=== PATIENT | male | born 1955 | race African-American/Black ===

== ENCOUNTER 2017-08-06 13:29 | Inpatient (IN) | payer SELFPAY ==
[2017-08-06 13:51] LABS: Absolute Lymphocytes (CBC) 0.8 K/uL (0.7-4.9); Absolute Neutrophil 2.6 K/uL (1.8-8.0); Basophils % 0.4 % (0-1.3); Eosinophils % 0.9 % (0-4.4); Hematocrit 43.2 % (39.6-49.0); Lymphocytes % 24.4 % (15.3-44.8); MCH 28.8 pg (27.0-35.0); MCV 88.1 fL (80-100); MPV 7.5 fL (7.6-11.3); Monocytes % 0.7 % (3.3-12.3); RBC Red Blood Cell Count 4.91 M/uL (4.33-5.43)
[2017-08-06 13:54] LABS: Protime INR 1.28
--- NOTE | 2017-08-06 14:03 | EKG ---
Test Date: 2017-08-06 Test Time: 13:30:44 Follow Up Manager: MEASUREMENT RESULTS: Intervals: Rate: 123 VT: 130 QRSD: 74 QT: 306 QTc: 438 Jayess: P: 84 VT: 130 QRS: 45 T: -55 INTERPRETIVE STATEMENTS: Sinus tachycardia Marked ST abnormality, possible inferior subendocardial injury Abnormal ECG Compared to ECG 05/29/2007 23:17:51 ST (T wave) deviation now present Sinus bradycardia no longer present T-wave abnormality no longer present Possible ischemia no longer present Electronically Signed On 08-06-17 14:03:00 CDT by Jose Avila
[2017-08-06 14:05] LABS: Albumin 3.6 g/dL (3.2-5.5); Bilirubin Direct 0.2 mg/dL (0-0.2); Bilirubin Total 0.8 mg/dL (0.3-1.2); Magnesium 1.7 mg/dL (1.8-2.5); Protein, Total 8.2 g/dL (6.0-8.3)
--- NOTE | 2017-08-06 14:24 | EDPHYS ---
Physician Documentation [facility] Name: Jorge Alfaro Age: 62 yrs Sex: Male : 1955 Arrival Date: 08/06/2017 Time: 13:31 Bed 2 Private MD: ED Physician Ramses Sellers HPI: 08/06 14:20 This 62 yrs old Black Male presents to ER via EMS with complaints of Chest Pain > 30 jr8 y/o. 14:20 The patient or guardian reports chest pain that is located primarily in the substernal jr8 area. Onset: acutely, today. The pain does not radiate. Associated signs and symptoms: The patient has no apparent associated signs or symptoms. The chest pain is described as a heaviness. Duration: The patient or guardian reports a single episode. Modifying factors: The symptoms are alleviated by remaining still, rest, the symptoms are aggravated by exertion. Severity of pain: At its worst the pain was moderate in the emergency department the pain is unchanged. The patient has experienced similar episodes in the past, a few times. The patient has not recently seen a physician. history of chest pain that comes and goes with exertion. Worse today with tremor. Historical: - Allergies: 13:37 No Known Allergies; tw2 - Home Meds: 13:37 None [Active]; tw2 - PMHx: 13:37 Hypertension; "clogged artery unknown"; tw2 - Immunization history:: Adult Immunizations up to date. - Social history:: Smoking status: Patient uses tobacco products, smokes one pack cigarettes per day. ROS: 14:20 Eyes: Negative for injury, pain, redness, and discharge, ENT: Negative for injury, jr8 pain, and discharge, Neck: Negative for injury, pain, and swelling, Respiratory: Negative for shortness of breath, cough, wheezing, and pleuritic chest pain, Abdomen/GI: Negative for abdominal pain, nausea, vomiting, diarrhea, and constipation, Back: Negative for injury and pain, MS/Extremity: Negative for injury and deformity, Skin: Negative for injury, rash, and discoloration, Neuro: Negative for headache, weakness, numbness, tingling, and seizure. 14:20 Cardiovascular: Positive for chest pain, Negative for edema, orthopnea, palpitations, paroxysmal nocturnal dyspnea. Exam: 14:20 Eyes: Pupils equal round and reactive to light, extra-ocular motions intact. Lids and jr8 lashes normal. Conjunctiva and sclera are non-icteric and not injected. Cornea within normal limits. Periorbital areas with no swelling, redness, or edema. ENT: Nares patent. No nasal discharge, no septal abnormalities noted. Tympanic membranes are normal and external auditory canals are clear. Oropharynx with no redness, swelling, or masses, exudates, or evidence of obstruction, uvula midline. Mucous membranes moist. Neck: Trachea midline, no thyromegaly or masses palpated, and no cervical lymphadenopathy. Supple, full range of motion without nuchal rigidity, or vertebral point tenderness. No Meningismus. Cardiovascular: Regular rate and rhythm with a normal S1 and S2. No gallops, murmurs, or rubs. Normal PMI, no JVD. No pulse deficits. Respiratory: Lungs have equal breath sounds bilaterally, clear to auscultation and percussion. No rales, rhonchi or wheezes noted. No increased work of breathing, no retractions or nasal flaring. Abdomen/GI: Soft, non-tender, with normal bowel sounds. No distension or tympany. No guarding or rebound. No evidence of tenderness throughout. Back: No spinal tenderness. No costovertebral tenderness. Full range of motion. Skin: Warm, dry with normal turgor. Normal color with no rashes, no lesions, and no evidence of cellulitis. MS/ Extremity: Pulses equal, no cyanosis. Neurovascular intact. Full, normal range of motion. Neuro: Awake and alert, GCS 15, oriented to person, place, time, and situation. Cranial nerves II-XII grossly intact. Motor strength 5/5 in all extremities. Sensory grossly intact. Cerebellar exam normal. Normal gait. Vital Signs: 13:31 BP 139 / 84; Pulse 127; Resp 17; Pulse Ox 100% on R/A; tw2 13:32 Temp 99.1(O); aa5 14:17 BP 106 / 63; Pulse 94; Resp 17; Pulse Ox 100% on R/A; hb 14:37 Weight 86.18 kg (R); tw2 15:15 BP 96 / 76; Pulse 114; Resp 16; Pulse Ox 97% on NC; tw2 16:00 Temp 100.3; ms 16:15 BP 118 / 73; Pulse 116; Resp 16; Pulse Ox 100% on 2 lpm NC; tw2 MDM: 13:35 Patient medically screened. 14:20 HEART Score: History: Moderately Suspicious (1), ECG: Non specific repolarization jr disturbance / LBTB / PM (1), Age: > 45 and < 65 years (1), Risk Factors: 1 or 2 risk factors (1), [Hypercholesterolemia] [Active Smoker] Troponin: > 1 and < 3 x normal limit (1). The patient was not given aspirin in the Emergency Department. Administered by EMS. Data reviewed: vital signs, nurses notes, lab test result(s), EKG, radiologic studies, plain films, and as a result, I will admit patient. Data interpreted: Pulse oximetry: on room air is 100 %. Interpretation: normal. Counseling: I had a detailed discussion with the patient and/or guardian regarding: the historical points, exam findings, and any diagnostic results supporting the discharge/admit diagnosis, lab results, radiology results, the need for further work-up and treatment in the hospital. 08/06 13:36 Order name: Basic Metabolic Panel; Complete Time: 14:08/06 13:36 Order name: BNP; Complete Time: 14:08/06 13:36 Order name: CBC with Diff; Complete Time: 13:08/06 13:36 Order name: CPK; Complete Time: 14:08/06 13:36 Order name: LFT's; Complete Time: 14:08/06 13:36 Order name: Magnesium; Complete Time: 14:08/06 13:36 Order name: PT-INR; Complete Time: 13:56 08/06 13:36 Order name: Ptt, Activated; Complete Time: 13:56 08/06 13:36 Order name: Troponin (emerg Dept Use Only); Complete Time: 14:19 08/06 13:36 Order name: XRAY Chest (1 view) 08/06 13:36 Order name: UDS; Complete Time: 15:03 08/06 14:24 Order name: Urine Dipstick--Ancillary (enter results) 08/06 14:29 Order name: Urine Microscopic Only; Complete Time: 15:08/06 16:22 Order name: RAD; Complete Time: 16:24 EDMS 08/06 13:36 Order name: EKG; Complete Time: 13:37 08/06 13:36 Order name: Cardiac monitoring; Complete Time: 13:44 [email or web address] 08/06 13:36 Order name: EKG - Nurse/Tech; Complete Time: 13:44 08/06 13:36 Order name: IV Saline Lock; Complete Time: 13:44 08/06 13:36 Order name: Labs collected and sent; Complete Time: 13:44 08/06 13:36 Order name: O2 Per Protocol; Complete Time: 13:44 08/06 13:36 Order name: O2 Sat Monitoring; Complete Time: 13:44 [email or web address] 08/06 13:36 Order name: Urine Dipstick-Ancillary (obtain specimen); Complete Time: 14:52 [facility] [[email or web address] 08/06 14:36 Order name: CONS Physician Consult EDMS Administered Medications: 14:40 Drug: Rocephin - (cefTRIAXone) 1 grams {Note: IVP available only from pharmacy.} Route: tw2 IVPB; Infused Over: 5 mins; Site: right antecubital; 14:45 Follow up: IV Status: Completed infusion tw2 14:46 Drug: Lovenox 1 mg/kg Route: Sub-Q; Site: right lower abdomen; tw2 15:09 Follow up: Response: No adverse reaction tw2 15:05 Drug: Magnesium Sulfate 1 grams Route: IVPB; Infused Over: 1 hrs; Site: right tw2 antecubital; 16:05 Follow up: Response: No adverse reaction; IV Status: Completed infusion tw2 15:07 CANCELLED (Physician Discretion): NS 0.9% 1000 ml IV at 1000 ml once jr8 15:07 CANCELLED (Duplicate Order): NS 0.9% 1000 ml IV at 1 bolus Per protocol; 1000 mL bolus tw2 15:08 Drug: Effient 60 mg Route: PO; tw2 16:12 Follow up: Response: No adverse reaction tw2 15:14 Drug: NS 0.9% 1000 ml Route: IV; Rate: 1 bolus; Site: right antecubital; tw2 16:12 Follow up: Response: No adverse reaction; IV Status: Completed infusion; IV Intake: tw2 1000ml Disposition: 08/07 09:20 Co-signature as Attending Physician, Ramses Marlo MD I agree with the assessment and geovany plan of care. Disposition: 08/06/17 14:23 Hospitalization ordered by Grover Randhawa for Inpatient Admission. Preliminary diagnosis are Non-ST elevation (NSTEMI) myocardial infarction, Urinary tract infection, site not specified. - Bed requested for Intensive Care Unit. - Status is Inpatient Admission. tw2 - Condition is Stable. - Problem is new. - Symptoms have improved. UTI on Admission? Yes Signatures: Dispatcher [employer] EDND Ramses Sellers MD MD cha Roszak, Josh, PA PA jr8 Myriam Chambers Tara, RN RN tw2 Corrections: (The following items were deleted from the chart) 08/06 14:29 14:23 Hospitalization Ordered by Grover Randhawa MD for Inpatient Admission. jr8 Preliminary diagnosis is Non-ST elevation (NSTEMI) myocardial infarction. Bed requested for Intensive Care Unit. Status is Inpatient Admission. Condition is Stable. Problem is new. Symptoms have improved. UTI on Admission? No. jr8 15:07 15:06 NS 0.9% 1000 ml IV at 1000 ml once ordered. jr8 jr8 15:07 15:06 NS 0.9% 1000 ml IV at 1 bolus Per protocol; 1000 mL bolus ordered. tw2 tw2 16:11 14:29 08/06/2017 14:23 Hospitalization Ordered by Grover Randhawa MD for Inpatient ag Admission. Preliminary diagnosis is Non-ST elevation (NSTEMI) myocardial infarction; Urinary tract infection, site not specified. Bed requested for Intensive Care Unit. Status is Inpatient Admission. Condition is Stable. Problem is new. Symptoms have improved. UTI on Admission? Yes. jr8 16:51 16:11 08/06/2017 14:23 Hospitalization Ordered by Grover Randhawa MD for Inpatient tw2 Admission. Preliminary diagnosis is Non-ST elevation (NSTEMI) myocardial infarction; Urinary tract infection, site not specified. Bed requested for Intensive Care Unit. Status is Inpatient Admission. Condition is Stable. Problem is new. Symptoms have improved. UTI on Admission? Yes. ag
--- NOTE | 2017-08-06 14:24 | ER ---
Nurse's Notes [facility] Name: Joreg Alfaro Age: 62 yrs Sex: Male : 1955 Arrival Date: 08/06/2017 Time: 13:31 Bed 2 Private MD: Diagnosis: Non-ST elevation (NSTEMI) myocardial infarction;Urinary tract infection, site not specified Presentation: 08/06 13:33 Presenting complaint: EMS states: c/o chest pain and tremors, intermittent for several tw2 months, associated severe tremors, when tremors subside chest pain/pressure decreases, family member called was worried because of given meds from [facility] of penicillin and tramadol, vs stable, groin pain x1 week, to see dr. gregg tomorrow, hx: htn, "clogged artery unknown". Transition of care: patient was not received from another setting of care. Onset of symptoms was August 06, 2017. Initial Sepsis Screen: Does the patient meet any 2 criteria? No. Patient's initial sepsis screen is negative. Does the patient have a suspected source of infection? No. Patient's initial sepsis screen is negative. Care prior to arrival: Medication(s) given: ASA, 325 mg, x 1, IV initiated. 20 GA, in the right antecubital area. 13:33 Method Of Arrival: EMS: [facility] tw2 13:33 Acuity: EARNESTINE 3 tw2 Historical: - Allergies: 13:37 No Known Allergies; tw2 - Home Meds: 13:37 None [Active]; tw2 - PMHx: 13:37 Hypertension; "clogged artery unknown"; tw2 - Immunization history:: Adult Immunizations up to date. - Social history:: Smoking status: Patient uses tobacco products, smokes one pack cigarettes per day. Screenin:36 Abuse screen: Denies threats or abuse. Nutritional screening: No deficits noted. tw2 Tuberculosis screening: No symptoms or risk factors identified. Fall Risk None identified. Assessment: 13:37 General: Appears in no apparent distress. unkempt, Behavior is calm, cooperative, tw2 appropriate for age. Pain: Complains of pain in chest Pain does not radiate. Pain began suddenly, Aggravated by "tremors". Neuro: Level of Consciousness is awake, alert, obeys commands, Oriented to person, place, time, situation. Cardiovascular: Heart tones S1 S2 Capillary refill < 3 seconds Patient's skin is warm and dry. Respiratory: Airway is patent Respiratory effort is even, unlabored, Respiratory pattern is regular, symmetrical, Breath sounds are clear. GI: Abdomen is flat, Bowel sounds present X 4 quads. : No signs and/or symptoms were reported regarding the genitourinary system. EENT: No signs and/or symptoms were reported regarding the EENT system. Derm: No signs and/or symptoms reported regarding the dermatologic system. Musculoskeletal: Range of motion: intact in all extremities. 13:40 Cardiovascular: Rhythm is sinus tachycardia. tw2 14:17 Reassessment: Patient appears in no apparent distress at this time. No changes from hb previously documented assessment. Patient and/or family updated on plan of care and expected duration. Pain level reassessed. Patient is alert, oriented x 3, equal unlabored respirations, skin warm/dry/pink. 15:15 Reassessment: Patient appears in no apparent distress at this time. No changes from tw2 previously documented assessment. Patient and/or family updated on plan of care and expected duration. Pain level reassessed. Patient is alert, oriented x 3, equal unlabored respirations, skin warm/dry/pink. 16:14 Reassessment: Patient appears in no apparent distress at this time. No changes from tw2 previously documented assessment. Patient and/or family updated on plan of care and expected duration. Pain level reassessed. Patient is alert, oriented x 3, equal unlabored respirations, skin warm/dry/pink. Vital Signs: 13:31 BP 139 / 84; Pulse 127; Resp 17; Pulse Ox 100% on R/A; tw2 13:32 Temp 99.1(O); aa5 14:17 BP 106 / 63; Pulse 94; Resp 17; Pulse Ox 100% on R/A; hb 14:37 Weight 86.18 kg (R); tw2 15:15 BP 96 / 76; Pulse 114; Resp 16; Pulse Ox 97% on NC; tw2 16:00 Temp 100.3; ms 16:15 BP 118 / 73; Pulse 116; Resp 16; Pulse Ox 100% on 2 lpm NC; tw2 ED Course: 13:31 Patient arrived in ED. tw2 13:35 Triage completed. tw2 13:35 Buster Son PA is PHCP. jr8 13:35 Ramses Sellers MD is Attending Physician. jr8 13:35 Arm band placed on. tw2 13:35 Placed in gown. Bed in low position. telemetry monitor on. Pulse ox on. NIBP on. tw2 13:39 Maintain EMS IV. Dressing intact. Good blood return noted. Site clean \\T\\ dry. Gauge \\T\\ tw 2 site: 20 g right. Patient maintains SpO2 saturation greater than 95% on room air. 13:39 Initial lab(s) drawn, by me, sent to lab. aa5 14:17 Renata Richard, GUY is Primary Nurse. hb 14:23 Grover Randhawa MD is Hospitalizing Provider. jr8 16:13 No provider procedures requiring assistance completed. Patient admitted, IV remains in tw2 place. Administered Medications: 14:40 Drug: Rocephin - (cefTRIAXone) 1 grams {Note: IVP available only from pharmacy.} Route: tw2 IVPB; Infused Over: 5 mins; Site: right antecubital; 14:45 Follow up: IV Status: Completed infusion tw2 14:46 Drug: Lovenox 1 mg/kg Route: Sub-Q; Site: right lower abdomen; tw2 15:09 Follow up: Response: No adverse reaction tw2 15:05 Drug: Magnesium Sulfate 1 grams Route: IVPB; Infused Over: 1 hrs; Site: right tw2 antecubital; 16:05 Follow up: Response: No adverse reaction; IV Status: Completed infusion tw2 15:07 CANCELLED (Physician Discretion): NS 0.9% 1000 ml IV at 1000 ml once jr8 15:07 CANCELLED (Duplicate Order): NS 0.9% 1000 ml IV at 1 bolus Per protocol; 1000 mL bolus tw2 15:08 Drug: Effient 60 mg Route: PO; tw2 16:12 Follow up: Response: No adverse reaction tw2 15:14 Drug: NS 0.9% 1000 ml Route: IV; Rate: 1 bolus; Site: right antecubital; tw2 16:12 Follow up: Response: No adverse reaction; IV Status: Completed infusion; IV Intake: tw2 1000ml Intake: 16:12 IV: 1000ml; Total: 1000ml. tw2 Output: 16:20 Urine: 250ml (Voided); Total: 250ml. tw2 Outcome: 14:23 Decision to Hospitalize by Provider. jr8 16:51 Patient left the ED. tw2 Signatures: Gloria Triana ms, Audri, RN RN aa5 Buster Son PA PA jr8 Renata Richard, RN RN Karina Rivero RN RN tw2
[2017-08-06] MEDS ORDERED: MAGNESIUM SULFATE 1 gm IVPB 1 GM/100 ML BAG IV ONE (14:43)
[2017-08-06] MEDS ORDERED: ENOXAPARIN 100 MG/ML SYR SQ ONE (14:43)
[2017-08-06] MEDS ORDERED: CEFTRIAXONE/SWI 1gm 1 GM/10 ML SYR ONE (14:44)
[2017-08-06 14:47] LABS: Urine Bacteria >50 /HPF (NONE SEEN); Urine RBC <5 /HPF (NONE SEEN)
[2017-08-06 14:49] LABS: Urine Culture Reflex Order REFLEXED
[2017-08-06 14:50] LABS: Urine Amorphous Sediment 1+ /HPF (NONE SEEN); Urine Mucus 2+ /HPF (NONE SEEN); Urine Triple Phosphate Crystal MANY (NONE SEEN)
[2017-08-06 14:53] LABS: Barbiturates NEGATIVE; Benzodiazepines NEGATIVE; Cocaine NEGATIVE; METHAMPHETAM NEGATIVE; Opiates POSITIVE; Phencyclidine NEGATIVE; THC Cannibis NEGATIVE
[2017-08-06] MEDS ORDERED: PRASUGREL (EFFIENT) 10 MG TAB PO ONE (15:00)
[2017-08-06] MEDS ORDERED: NA CHLORIDE 0.9% 1,000 ML ONE (15:11)
[2017-08-06] MEDS ORDERED: NITROGLYCERIN 0.4 MG/TAB SL PRN (15:36)
--- NOTE | 2017-08-06 15:42 | P.HP ---
Certification for Inpatient With expected LOS: >2 Midnights Practitioner: I am a practitioner with admitting privileges, knowledge of patient current condition, hospital course, and medical plan of care. Services: Services provided to patient in accordance with Admission requirements found in Title 42 Section 412.3 of the Code of Federal Regulations Patient History Date of Service: 08/06/17 Reason for admission: Chest pain dysuria History of Present Illness: Patient is 62 years of age a poor historian history obtained from family members he has been having chest pain on an off for quite some time became progressively worse eyes having before to for to fight times a day he admission percent and a shaking spell his chest pain is retrosternal patient does smoke a PE he was scheduled to see a primary care physician In addition he complains of dysuria pain in the right growing urinary hesitancy and poor stream digestive of for prostatic hypertrophy Allergies No Known Allergies Allergy (Unverified 08/06/17 15:33) - Past Medical/Surgical History -: Hypertension Review of Systems General: Weakness Respiratory: Shortness of Breath Cardiovascular: Chest Pain Genitourinary: Dysuria, Frequency, Unremarkable Physical Examination - Vital Signs Temperature: 99 F Blood Pressure: 139/84 Pulse: 127 Respirations: 18 Pulse Ox (%): 100 (RA) - Physical Exam General: Alert, Oriented x3, Moderate distress HEENT: Atraumatic Neck: Supple Respiratory: Expiratory wheezes Cardiovascular: No edema, Normal pulses Gastrointestinal: Normal bowel sounds, Soft and benign Musculoskeletal: No clubbing, No contractures Integumentary: No rashes, No breakdown Neurological: Normal gait, Normal speech External genitalia: No edema, No lesions, No masses, Non-tender - Studies Laboratory Data (last 24 hrs) 08/06/17 13:35: PT 15.2 H, INR 1.28, APTT 26.4 08/06/17 13:35: WBC 3.5 L, Hgb 14.1, Hct 43.2, Plt Count 211 08/06/17 13:35: B-Natriuretic Peptide 220 H 08/06/17 13:35: Sodium 137, Potassium 4.0, BUN 16, Creatinine 1.25 H, Glucose 86 , Magnesium 1.7 L, Total Bilirubin 0.8, AST 29, ALT 20, Alkaline Phosphatase 105 Assessment and Plan - Problems (Diagnosis) (1) Non-ST elevation [place] (NSTEMI) Current Visit: Yes Status: Acute Plan: Patient is 62 years of age admitted with increasing frequency of chest pain suggestive of unstable angina the kg is very abnormal EKG shows possible subendocardial injury patient is an active smoker history of hypertension noncompliant with his medication chest x-ray clear mild renal insufficiency cardiology has been consulted start on anticoagulation beta-blockers still having some chest pain I have added nitrates nitroglycerin he was given 1 dose of Effient - Advance Directives Does patient have a Living Will: No Does patient have a Durable POA for Healthcare: No
[2017-08-06] MEDS: CARVEDILOL 12.5 MG TAB PO SCH (16:00)
[2017-08-06] MEDS: ISOSORBIDE MONO SR 30 MG TAB PO SCH (16:00)
[2017-08-06] MEDS: ENOXAPARIN 80 MG/0.8 ML SQ SCH (16:00)
--- NOTE | 2017-08-06 16:22 | RAD REPORT ---
EXAM DESCRIPTION: Damon Single View08/06/2017 3:14 pm CLINICAL HISTORY: Chest pain COMPARISON: none FINDINGS: The lungs appear clear of acute infiltrate. The heart is normal size IMPRESSION: No acute abnormalities displayed
[2017-08-06 17:09] LABS: Urine Blood TRACE (NEG); Urine Glucose NEGATIVE (NEG); Urine Protein 2+ (NEG); Urine Specific Gravity 1.015 (1.005-1.030); Urine pH >8.5 (5.0-7.0)
[2017-08-06] MEDS: predniSONE 20 MG TAB PO SCH ×2 (17:28→20:23)
[2017-08-06] MEDS: NACHLORIDE 0.45% 1,000 ML IV SCH (17:29)
--- NOTE | 2017-08-06 19:53 | RAD REPORT ---
EXAM DESCRIPTION: US - Renal Ultrasound-Complete - 08/06/2017 7:24 pm CLINICAL HISTORY: . Dysuria/urinary hesitancy COMPARISON: None. FINDINGS: The right kidney measures 13 centimeters with a mildly increased echotexture. Several cyst s are present largest measuring 6 centimeter The left kidney measures 12 cm with a normal echotexture. Hydronephrosis is not seen. IMPRESSION: 6 centimeter right renal cyst Mildly increased renal echotexture consistent with parenchymal disease
[2017-08-06] MEDS: IPRATROPIUM BROM 0.5MG/2.5ML NEB SCH (20:00)
[2017-08-06] MEDS ORDERED: PNEUMOCOCCAL VACCINE 0.5 ML IMVAC ONE (20:00)
[2017-08-06] MEDS ORDERED: ATORVASTATIN 40 MG TAB PO SCH (21:00)
--- NOTE | 2017-08-06 22:26 | P.PN ---
Subjective Date of Service: 08/06/17 Chief Complaint: Chest pain dysuria Physical Examination - Vital Signs Temperature: 99.7 F Blood Pressure: 115/69 Pulse: 119 Respirations: 21 Pulse Ox (%): 100 - Studies Laboratory Data (last 24 hrs) 08/06/17 13:35: PT 15.2 H, INR 1.28, APTT 26.4 08/06/17 13:35: WBC 3.5 L, Hgb 14.1, Hct 43.2, Plt Count 211 08/06/17 13:35: B-Natriuretic Peptide 220 H 08/06/17 13:35: Sodium 137, Potassium 4.0, BUN 16, Creatinine 1.25 H, Glucose 86 , Magnesium 1.7 L, Total Bilirubin 0.8, AST 29, ALT 20, Alkaline Phosphatase 105 Assessment & Plan - Problems (Diagnosis) (1) Chest pain Current Visit: Yes Status: Acute (2) HTN (hypertension) Current Visit: Yes Status: Chronic Qualifiers: Hypertension type: essential hypertension Qualified Code(s): I10 - Essential (primary) hypertension (3) Renal insufficiency Current Visit: Yes Status: Acute (4) Non-ST elevation PR (NSTEMI) Current Visit: Yes Status: Acute
[2017-08-07] MEDS: IPRATROPIUM BROM 0.5MG/2.5ML NEB SCH ×4 (01:55→19:39)
[2017-08-07] MEDS: NACHLORIDE 0.45% 1,000 ML IV SCH (04:17)
[2017-08-07] MEDS: CARVEDILOL 12.5 MG TAB PO SCH (05:50)
[2017-08-07 06:43] LABS: Potassium 4.7 mEq/L (3.6-5.0)
[2017-08-07] MEDS: ENOXAPARIN 80 MG/0.8 ML SQ SCH (09:00)
[2017-08-07] MEDS: predniSONE 20 MG TAB PO SCH ×2 (09:00→20:25)
[2017-08-07] MEDS: ISOSORBIDE MONO SR 30 MG TAB PO SCH (09:00)
[2017-08-07] MEDS: ACETYLCYST 20% 800 MG/4 ML VIAL PO SCH ×2 (10:00→20:26)
[2017-08-07] MEDS ORDERED: LIDOCAINE 1% 20 ML MDV ONE ×2 (10:08→10:24)
[2017-08-07] MEDS ORDERED: HEPA 1000U/500MLS 2,000 UNIT/1,000 ML BAG IV ONE (10:08)
[2017-08-07] MEDS ORDERED: NA CHLORIDE 0.9% 50 ML ONE (10:25)
[2017-08-07] MEDS ORDERED: NICARDIPINE HCL 25 MG/10 ML IV ONE (10:25)
[2017-08-07] MEDS ORDERED: ATROPINE SULF 1 MG/10 ML SYR IV ONE (10:25)
[2017-08-07] MEDS ORDERED: HEPARIN 5000 UNIT/ML 1 ML VIAL ONE (10:25)
[2017-08-07] MEDS ORDERED: FENTANYL CITR 100 MCG/2 ML ONE (10:26)
[2017-08-07] MEDS ORDERED: MIDAZOLAM HCL 2 MG/2 ML INJ ONE ×2 (10:26→11:02)
[2017-08-07] MEDS ORDERED: NA CHLORIDE 0.9% 500 ML ONE ×2 (10:41→11:30)
[2017-08-07] MEDS ORDERED: PRASUGREL (EFFIENT) 10 MG TAB ONE ×2 (11:36→11:39)
[2017-08-07] MEDS ORDERED: ASPIRIN 81 MG CHEWABLE TABLET ONE ×2 (11:36→11:39)
--- NOTE | 2017-08-07 12:37 | CON ---
Chief Complaint: Chest pain. History Of Present Illness: Mr. Alfaro has been having intermittent chest pains for a few years, but over the last few days, it got much worse. His daughter insisted, he come to the ER. Since he has been here, he had an EKG that showed diffuse ST depression. Later, an EKG showed much improvement in that and he has had abnormal cardiac enzymes. Mr. Alfaro is a patient, who does not take any medica tions at home, but he does have hypertension, was prescribed blood pressure medicines, never took it. He also is a heavy tobacco user. Denies any history of diabetes. Allergies: DENIES ANY DRUG ALLERGIES. Social History: Alcohol use is modest, not high. Denies illegal drug use. Physical Examination: Vital Signs: 5 Feet 10 inches, 172 pounds. HEENT: Normal. Lungs: Clear. Heart: S4 gallop otherwise normal. Abdomen: Soft. Extremities: Normal distal pulses. His electrocardiogram showed marked ST abnormality. Impression: Mr. Alfaro has a non-ST elevation myocardial infarction. I have recommended we do a car diac cath and possible stent. He seems to understand the procedure, potential benefits, indications, risks, and agrees to proceed. RENE/FERN Voice ID: [id number] Report ID: [id number]
[2017-08-07] MEDS ORDERED: ACETAMINOPHEN 325 MG TABLET PO PRN (12:42)
--- NOTE | 2017-08-07 16:01 | P.PN ---
Subjective Date of Service: 08/07/17 Primary Care Provider: none Chief Complaint: Chest pain dysuria Subjective: Improving Physical Examination - Vital Signs Temperature: 97.8 F Blood Pressure: 129/79 Pulse: 84 Respirations: 20 Pulse Ox (%): 99 - Physical Exam General: Alert, In no apparent distress, Oriented x3, Cooperative HEENT: Atraumatic Neck: Supple Respiratory: Clear to auscultation bilaterally, Normal air movement Cardiovascular: Normal pulses, Regular rate/rhythm Gastrointestinal: Normal bowel sounds, Soft and benign, Non-distended, No masses , No rebound, No guarding Musculoskeletal: No erythema, No tenderness, No warmth Integumentary: No tenderness/swelling, No erythema, No warmth, No cyanosis Neurological: Normal speech, Normal strength at 5/5 x4 extr, Normal tone, Normal affect - Studies Medications List Reviewed: Yes Assessment & Plan - Problems (Diagnosis) (1) Chest pain Current Visit: Yes Status: Acute Plan: Patient have heart catheterization today. Await final evaluation by Cardiology. (2) HTN (hypertension) Current Visit: Yes Status: Chronic Plan: Will continue with blood pressure medication. Patient has not been compliant in the past. Qualifiers: Hypertension type: essential hypertension Qualified Code(s): I10 - Essential (primary) hypertension (3) Renal insufficiency Current Visit: Yes Status: Acute Plan: Mild renal insufficiency noted. Will monitor closely. (4) Non-ST elevation [place] (NSTEMI) Current Visit: Yes Status: Acute Plan: Heart catheterization pending. (5) Hyperlipidemia Current Visit: Yes Status: Chronic Plan: Will continue with medication. Will check fasting lipid panel. (6) Hypomagnesemia Current Visit: Yes Status: Acute Plan: Will monitor and replace appropriately. Replacement protocol in place. Discharge Plan: Home Plan to discharge in: 24 Hours Time Spent Managing Pts Care (In Minutes): 55
[2017-08-07] MEDS: CLOPIDOGREL 75 MG TABLET PO SCH (16:58)
[2017-08-07] MEDS: METOPROLOL TAR 25 MG TAB PO SCH (18:01)
[2017-08-07] MEDS: ATORVASTATIN 80 MG TAB PO SCH (20:25)
--- NOTE | 2017-08-07 22:22 | OP ---
Surgeon: Jsoe Avila MD Procedures: Left heart catheterization, coronary left ventricular angiography, and percutaneous coronary stent pr oximal circumflex stenosis. Procedure Findings: The patient has a totally occluded right coronary that seems to be of long durat ion. There is akinesis of the inferior wall. The left main is free of any significant stenosis. LA D is free of any significant stenosis more than 50%. It is diffusely diseased very distally and has some 70% to 80% stenosis where it is a 1 mm vessel, very close to the apex. The circumflex is diffus adonay diseased, but proximal within 1 cm of the origin, it had an 80% to 90% stenosis. We believe this to be the culprit lesion with his non-ST elevation RI. We stented it with a 3.0 x 12 Synergy stent, inflated to 10 atmospheres. Excellent angiographic result. Procedure In Detail: The patient had evidence of a non-ST elevation RI. He was brought to the [facility] process laboratory specialist in a fasting state, sedated with Versed and fentanyl. Prepared and draped in the usual s terile fashion. Right radial approach was used. We anesthetized the skin over the right radial ellyn ry with lidocaine, entered the artery using a 21-gauge needle. We used a 0.021-inch diameter wire to cannulate the artery. We then used modified Seldinger technique to place a 6-Bruneian radial sheath i n place. We then angiogramed left ventricle, right and left coronaries using a TIG catheter placed i nto the ascending aorta using fluoroscopy and a Terumo Glidewire with a short radius J-tip. After we determined that we should do a stent, the TIG catheter was removed over an exchange length J-wire an d Ikari 4.0 left with side holes was used. We were able to cannulate the left main ostium. We were able to pass a [place] wire across the lesion. It did not require predilation and it was stented with a 3-0 x 12 synergy, 10 atmospheres, excellent angiographic result. The stent catheter and the wires were removed. Final angiograms were obtained. The guiding catheter was removed over a J-wire. A T R band was flushed and removed. The sheath was flushed and removed and the arteriotomy was closed wi th a TR band. As soon as we determined the need for a stent, he was on Angiomax. Activated clotting time was demonstrated to be more than 300 seconds. As soon as the sheath was in place, we gave the radial cocktail containing nicardipine, heparin, and nitroglycerin. Estimated Blood Loss: 10 cc. Business Services Tech: Karissa Adams. RENE/FERN Voice ID: [id number] Report ID: [id number]
[2017-08-08] MEDS: IPRATROPIUM BROM 0.5MG/2.5ML NEB SCH ×4 (01:15→21:11)
[2017-08-08 05:10] LABS: Absolute Lymphocytes (CBC) 0.8 K/uL (0.7-4.9); Absolute Monocytes 0.9 K/uL (0.1-1.3); Basophils % 0.1 % (0-1.3); Hematocrit 35.1 % (39.6-49.0); Lymphocytes % 2.6 % (15.3-44.8); MCH 28.2 pg (27.0-35.0); MCV 85.9 fL (80-100); MPV 8.7 fL (7.6-11.3); Monocytes % 2.8 % (3.3-12.3); RBC Red Blood Cell Count 4.09 M/uL (4.33-5.43)
[2017-08-08] MEDS: METOPROLOL TAR 25 MG TAB PO SCH ×2 (05:26→17:15)
[2017-08-08 05:51] LABS: BUN Blood Urea Nitrogen 23 mg/dL (6-20); Bicarbonate 22 mEq/L (21-31); Glucose Level 124 mg/dL (65-120); HDL Cholesterol 8 mg/dL (27-67); LDL Cholesterol, Calculated 58 (<130); Magnesium 2.1 mg/dL (1.8-2.5); Potassium 4.6 mEq/L (3.6-5.0); Sodium Level 135 mEq/L (135-145)
[2017-08-08 06:13] LABS: Blood Morphology Comment NOT SEEN (NOT SEEN); Platelet Estimate ADEQ
[2017-08-08] MEDS ORDERED: NA CHLORIDE 0.9% 1,000 ML IV SCH (06:19)
[2017-08-08] MEDS ORDERED: CEFTRIAXONE 1 GM/NS 50 ML 1 GM/50 ML BAG IV SCH (06:19)
--- NOTE | 2017-08-08 06:23 | P.PN ---
Date of Service: 08/08/17 Called re: significantly elevated WBC ct and bands. Ua with micro showed slightly elevated WBC ct, with bacteria positive, and urine culture and sensitivity showed >100,000 CFU of gram negative rods. Will start IV antibiotics. Will give additional fluids
[2017-08-08 07:33] LABS: Absolute Lymphocytes (CBC) 0.8 K/uL (0.7-4.9); Absolute Monocytes 1.1 K/uL (0.1-1.3); Absolute Neutrophil 32.6 K/uL (1.8-8.0); Basophils % 0.1 % (0-1.3); Eosinophils % 0.3 % (0-4.4); Hematocrit 35.8 % (39.6-49.0); Lymphocytes % 2.3 % (15.3-44.8); MCH 27.9 pg (27.0-35.0); MCV 86.5 fL (80-100); MPV 8.4 fL (7.6-11.3); Monocytes % 3.2 % (3.3-12.3); RBC Red Blood Cell Count 4.15 M/uL (4.33-5.43)
[2017-08-08] MEDS: CLOPIDOGREL 75 MG TABLET PO SCH (08:26)
[2017-08-08] MEDS: ASPIRIN EC 81 MG TAB PO SCH (08:26)
[2017-08-08] MEDS ORDERED: CEFTRIAXONE/SWI 1gm 1 GM/10 ML SYR IV SCH (09:00)
--- NOTE | 2017-08-08 09:01 | RAD REPORT ---
EXAM DESCRIPTION: RAD - Chest Pa And Lat (2 Views) - 08/08/2017 8:23 am CLINICAL HISTORY: Leukocytosis. COMPARISON: 08/06/2017 FINDINGS: The lungs are clear. The heart is normal in size. No displaced fractures. IMPRESSION: No acute or concerning finding suspected.
--- NOTE | 2017-08-08 10:03 | P.PN ---
Subjective Date of Service: 08/08/17 Primary Care Provider: none Chief Complaint: Chest pain dysuria Subjective: Improving (Patient doing better today. Urine culture was positive for bacteria. White count elevated.) Physical Examination - Vital Signs Temperature: 97.5 F Blood Pressure: 120/69 Pulse: 57 Respirations: 16 Pulse Ox (%): 99 - Physical Exam General: Alert, In no apparent distress, Oriented x3, Cooperative HEENT: Atraumatic Neck: Supple Respiratory: Clear to auscultation bilaterally, Normal air movement Cardiovascular: Normal pulses, Regular rate/rhythm Gastrointestinal: Normal bowel sounds, Soft and benign, Non-distended, No tenderness, No masses, No rebound, No guarding Musculoskeletal: No warmth Integumentary: No tenderness/swelling, No erythema, No warmth, No cyanosis Neurological: Normal speech, Normal strength at 5/5 x4 extr, Normal tone, Normal affect Lymphatics: No axilla or inguinal lymphadenopathy - Studies Medications List Reviewed: Yes Assessment & Plan - Problems (Diagnosis) (1) Chest pain Onset Date: 08/07/17 Current Visit: Yes Status: Acute Plan: Patient had heart catheterization yesterday. Stents placed. From a cardiac standpoint patient stable. Patient was be discharged today but patient with elevated white count. Urine culture positive for Proteus. Pro calcitonin elevated. Patient on IV Rocephin. Blood cultures obtained. Will monitor closely. Home once white count improved and blood cultures are negative. IV fluids started as well. (2) HTN (hypertension) Onset Date: 08/07/17 Current Visit: Yes Status: Chronic Plan: Will continue with blood pressure medication. Patient has not been compliant in the past. Qualifiers: Hypertension type: essential hypertension Qualified Code(s): I10 - Essential (primary) hypertension (3) Renal insufficiency Onset Date: 08/07/17 Current Visit: Yes Status: Acute Plan: Will continue with IV fluids. Will monitor closely. (4) Non-ST elevation [place] (NSTEMI) Onset Date: 08/07/17 Current Visit: Yes Status: Acute Plan: Heart catheterization done yesterday. Stents placed. Continue with cardiac recommendation. (5) Hyperlipidemia Onset Date: 08/07/17 Current Visit: Yes Status: Chronic Plan: Will continue with medication. (6) Hypomagnesemia Onset Date: 08/07/17 Current Visit: Yes Status: Acute Plan: Will monitor and replace appropriately. Replacement protocol in place. (7) UTI (urinary tract infection) Current Visit: Yes Status: Acute Plan: Patient on IV antibiotic therapy. Will continue with IV antibiotics. Blood cultures obtained. Pro calcitonin and white count elevated. Will monitor closely. Home once clinical condition and white count improved. Await blood culture results. Qualifiers: Urinary tract infection type: site unspecified Hematuria presence: without hematuria Qualified Code(s): N39.0 - Urinary tract infection, site not specified (8) Bacteremia Current Visit: Yes Status: Suspected Plan: Blood cultures obtained. White count and pro calcitonin elevated. Will monitor closely. Discharge Plan: Home Plan to discharge in: 48 Hours Time Spent Managing Pts Care (In Minutes): 55
[2017-08-08] MEDS: ENOXAPARIN 30 MG/0.3 ML SQ SCH (17:15)
[2017-08-08] MEDS: ATORVASTATIN 80 MG TAB PO SCH (20:31)
[2017-08-08] MEDS: CEFTRIAXONE/SWI 1gm 1 GM/10 ML SYR IV SCH (20:31)
--- NOTE | 2017-08-09 00:34 | PN ---
Date of Progress Note: 08/08/2017 Mr. Alfaro is 62, was admitted on 08/06/2017 with a non-ST elevation myocardial infarction. Dr. Pina is performed a stent on him on 08/07/2017. Overnight, he did well. His right wrist showed no hemato ma. Excellent pulses. He had no chest pain. Telemetry is normal. We will send him home today on a spirin, Effient, Lipitor, and a beta-nick and he will see us in the office in the next 2 weeks. MIGUEL/FERN Voice ID: [id number] Report ID: [id number]
[2017-08-09] MEDS: IPRATROPIUM BROM 0.5MG/2.5ML NEB SCH ×4 (01:55→20:00)
[2017-08-09] MEDS: PHENAZOPYRIDINE 100MG TAB PO SCH ×3 (02:48→21:00)
[2017-08-09] MEDS: LORazepam 2 MG/ML VIAL IV PRN ×3 (02:58→16:12)
[2017-08-09] MEDS: METOPROLOL TAR 25 MG TAB PO SCH ×2 (05:09→20:59)
[2017-08-09 06:40] LABS: Absolute Lymphocytes (CBC) 1.4 K/uL (0.7-4.9); Absolute Monocytes 0.6 K/uL (0.1-1.3); Absolute Neutrophil 18.1 K/uL (1.8-8.0); Basophils % 0.2 % (0-1.3); Eosinophils % 0.4 % (0-4.4); Hematocrit 36.9 % (39.6-49.0); Lymphocytes % 6.8 % (15.3-44.8); MCH 28.5 pg (27.0-35.0); MCV 85.5 fL (80-100); MPV 8.7 fL (7.6-11.3); Monocytes % 3.2 % (3.3-12.3); RBC Red Blood Cell Count 4.32 M/uL (4.33-5.43)
[2017-08-09 07:34] LABS: Bicarbonate 23 mEq/L (21-31); Potassium 4.3 mEq/L (3.6-5.0); Sodium Level 133 mEq/L (135-145)
[2017-08-09 07:37] LABS: BUN Blood Urea Nitrogen 24 mg/dL (6-20); Glucose Level 89 mg/dL (65-120); Magnesium 1.8 mg/dL (1.8-2.5)
[2017-08-09] MEDS ORDERED: MAGNESIUM SULFATE 1 gm IVPB 1 GM/100 ML BAG IV ONE ×2 (07:40→20:37)
[2017-08-09] MEDS ORDERED: NA CHLORIDE 0.9% 1,000 ML IV SCH ×2 (08:00→17:00)
[2017-08-09] MEDS: CEFTRIAXONE/SWI 1gm 1 GM/10 ML SYR IV SCH (09:00)
[2017-08-09] MEDS: CLOPIDOGREL 75 MG TABLET PO SCH (09:47)
[2017-08-09] MEDS: ASPIRIN EC 81 MG TAB PO SCH (09:47)
[2017-08-09] MEDS ORDERED: NA CHLORIDE 0.9% 250 ML IV PRN (10:07)
--- NOTE | 2017-08-09 10:11 | P.PN ---
Subjective Date of Service: 08/09/17 Primary Care Provider: none Chief Complaint: Chest pain dysuria Subjective: Other (Patient with slight fatigue this morning. Some chills noted Patient on IV antibiotic therapy for UTI. Blood cultures pending.) Physical Examination - Vital Signs Temperature: 99.0 F Blood Pressure: 140/78 Pulse: 75 Respirations: 18 Pulse Ox (%): 97 - Physical Exam General: Alert, In no apparent distress, Oriented x3, Cooperative HEENT: Atraumatic Neck: Supple Respiratory: Clear to auscultation bilaterally, Normal air movement Cardiovascular: Normal pulses, Regular rate/rhythm Gastrointestinal: Normal bowel sounds, Soft and benign, Non-distended, No tenderness, No masses, No rebound, No guarding Musculoskeletal: No erythema, No tenderness, No warmth Integumentary: No tenderness/swelling, No erythema, No warmth, No cyanosis Neurological: Normal speech, Normal strength at 5/5 x4 extr, Normal tone, Normal affect - Studies Microbiology Data (last 24 hrs): 08/06/17 14:15 Clean Catch Urine [place] Count - Final >100,000 CFU/ML. 08/06/17 14:15 Clean Catch Urine - Final Proteus Mirabilis Medications List Reviewed: Yes Assessment & Plan - Problems (Diagnosis) (1) Chest pain Onset Date: 08/07/17 Current Visit: Yes Status: Acute Plan: Patient is status post heart catheterization. Patient had totally occluded right Coronary. LAD was free of any significant stenosis more than 50%. It was diffusely diseased very distally. 70-80% stenosis were noted. Circumflex also diseased. Stent was placed. Continue with current medications. Patient with UTI. Urine culture positive for Proteus. Pro calcitonin was elevated. Blood cultures pending. Patient on IV antibiotic therapy. Will continue IV fluids. Slight fatigue noted. Patient with slight tachycardia later this morning. Will provide fluid bolus. Will monitor closely. (2) HTN (hypertension) Onset Date: 08/07/17 Current Visit: Yes Status: Chronic Plan: Will continue with blood pressure medication. Patient has not been compliant in the past. May need to adjust medication for better control. Qualifiers: Hypertension type: essential hypertension Qualified Code(s): I10 - Essential (primary) hypertension (3) Renal insufficiency Onset Date: 08/07/17 Current Visit: Yes Status: Acute Plan: Will continue with IV fluids. Much improved. Will monitor closely. (4) Non-ST elevation [place] (NSTEMI) Onset Date: 08/07/17 Current Visit: Yes Status: Acute Plan: Patient status post heart catheterization. Stent placed. Heart catheterization results reviewed. (5) Hyperlipidemia Onset Date: 08/07/17 Current Visit: Yes Status: Chronic Plan: Will continue with medication. (6) Hypomagnesemia Onset Date: 08/07/17 Current Visit: Yes Status: Acute Plan: Will monitor and replace appropriately. Replacement protocol in place. (7) UTI (urinary tract infection) Current Visit: Yes Status: Acute Plan: Continue with IV fluids and antibiotic therapy. Urine culture positive for Proteus. Await blood culture results. Patient given IV fluid bolus this morning. Will monitor closely. Qualifiers: Urinary tract infection type: site unspecified Hematuria presence: without hematuria Qualified Code(s): N39.0 - Urinary tract infection, site not specified (8) Bacteremia Current Visit: Yes Status: Suspected Plan: Blood cultures obtained. White count and pro calcitonin elevated. Will monitor closely. Discharge Plan: Home Plan to discharge in: 48 Hours Time Spent Managing Pts Care (In Minutes): 55
--- NOTE | 2017-08-09 10:47 | EKG ---
Test Date: 2017-08-09 Test Time: 09:42:25 Catalyst Operator Chief: TRAV MEASUREMENT RESULTS: Intervals: Rate: 133 DC: 150 QRSD: 72 QT: 284 QTc: 422 [place]: P: 87 DC: 150 QRS: 21 T: 17 INTERPRETIVE STATEMENTS: Sinus tachycardia ST & T wave abnormality, consider lateral ischemia Abnormal ECG Compared to ECG 08/06/2017 13:30:44 T (T wave) deviation still present Electronically Signed On 08-09-17 10:46:03 CDT by Jose Avila
[2017-08-09] MEDS ORDERED: NA CHLORIDE 0.9% 250 ML IV ONE (11:32)
[2017-08-09] MEDS ORDERED: IBUPROFEN 400 MG TAB PO PRN ×3 (11:55→12:07)
[2017-08-09] MEDS ORDERED: IBUPROFEN 400 MG TAB PO ONE (11:59)
[2017-08-09] MEDS ORDERED: Levofloxacin500mg IV 500 MG/100 ML BAG IV SCH (13:00)
--- NOTE | 2017-08-09 16:12 | RAD REPORT ---
EXAM DESCRIPTION: RAD - Chest Single View - 08/09/2017 3:12 pm CLINICAL HISTORY: Fall, chest pain, fever COMPARISON: August 08 TECHNIQUE: AP portable chest image was obtained 1500 hours . FINDINGS: No peripheral mass or consolidation. No failure findings. Heart size is normal, accentuate d due to AP technique. No vascular engorgement. No measurable pleural effusion and no pneumothorax. N o gross bony abnormality seen. No acute aortic findings suspected. IMPRESSION: No acute cardiopulmonary process. No significant interval change.
[2017-08-09] MEDS ORDERED: NA CHLORIDE 0.9% 500 ML ONE (16:46)
[2017-08-09] MEDS ORDERED: NA CHLORIDE 0.9% 500 ML IV ONE (17:00)
--- NOTE | 2017-08-09 17:06 | RAD REPORT ---
EXAM DESCRIPTION: RAD - Hip Right 2 View - 08/09/2017 3:58 pm CLINICAL HISTORY: Fall, pain COMPARISON: None. FINDINGS: AP and frog-leg views of the right hip were obtained. There is no fracture or dislocation . No acute or destructive bony process seen. IMPRESSION: Negative right hip examination for acute findings.
--- NOTE | 2017-08-09 17:08 | RAD REPORT ---
EXAM DESCRIPTION: RAD - Hip Left 2 View - 08/09/2017 3:58 pm CLINICAL HISTORY: Fall, hip pain COMPARISON: None. FINDINGS: AP and frogleg views of the left hip were obtained. There is no fracture or dislocation. N o acute or destructive bony process seen. No soft tissue abnormality. IMPRESSION: Negative left hip examination for acute or significant findings.
[2017-08-09 17:20] LABS: Absolute Monocytes 0.3 K/uL (0.1-1.3); Absolute Neutrophil 19.4 K/uL (1.8-8.0); Basophils % 0.2 % (0-1.3); Eosinophils % 0.7 % (0-4.4); Hematocrit 37.9 % (39.6-49.0); Lymphocytes % 4.6 % (15.3-44.8); MCH 28.3 pg (27.0-35.0); MCV 86.3 fL (80-100); MPV 8.9 fL (7.6-11.3); Monocytes % 1.7 % (3.3-12.3); RBC Red Blood Cell Count 4.39 M/uL (4.33-5.43)
[2017-08-09 17:27] LABS: Potassium 4.8 mEq/L (3.6-5.0)
[2017-08-09 17:30] LABS: Albumin 2.8 g/dL (3.2-5.5); Protein, Total 6.8 g/dL (6.0-8.3)
[2017-08-09 17:36] LABS: Bilirubin Total 0.9 mg/dL (0.3-1.2); Magnesium 1.6 mg/dL (1.8-2.5)
[2017-08-09] MEDS ORDERED: VANCOMYCIN 1.5 GM in NA CHLORIDE 0.9% 500 ML IVPB SCH (18:00)
--- NOTE | 2017-08-09 19:46 | RAD REPORT ---
EXAM DESCRIPTION: CT - Abdomen Pelvis W/Wo Contrast - 08/09/2017 6:53 pm CLINICAL HISTORY: Abdominal pain, pelvic pain COMPARISON: None. TECHNIQUE: Biphasic, helical CT imaging of the abdomen and pelvis was performed following 100 ml non -ionic IV contrast. Oral contrast was given. Precontrast imaging also performed. All CT scans are performed using dose optimization technique as appropriate and may include automated exposure control or mA/KV adjustment according to patient size. FINDINGS: No suspicious findings in the lung bases. The liver, spleen, and pancreas show no suspicious findings. Gallbladder and biliary tree are also wi thout suspicious finding. Precontrast imaging shows no hydronephrosis. No obstructing or nonobstructing calculi. A 5.6 centimet er cyst is seen lower pole right kidney. Smaller cysts seen on the left. There is an 11 millimeter ar ea of hyperdensity in the lateral mid left kidney on the precontrast imaging. This is probably minera lized parenchyma from an old injury. There is focal scarring in the capsule at this level. Partially filled urinary bladder shows no suspicious finding. Within the posterior prostate gland there is a 3 centimeter fluid or low-density mass. This is likely along the posterior margin of the prostatic urethra. Near the base of the penis there are 2 low-dens ity collections 1 measuring 3.1 cm in diameter and a second near the right-side base of the penis ludwin suring 3.7 x 1.8 cm. It is unknown if the patient has any history of a urethral or prostatic procedur e or injury. In the acute clinical setting with pain symptoms, findings could reflect prostatic and p eriurethral abscesses. An infected or inflamed prostatic or urethral diverticulum would be possible a s well. No dilated bowel loops or bowel wall thickening. No acute GI process identifiable. No free air, free fluid or pneumatosis. No mass or bulky lymphadenopathy. Fat extends into the left inguinal canal. No acute component seen. No adrenal abnormality. No acute or destructive bone process. Degenerative spurring is present. IMPRESSION: There are 3 or more complex periurethral fluid collections. In the posterior and posteri or inferior prostate gland a 3 centimeter low-density collection is present. A second 3 centimeter co llection is present near the prostate penile urethral junction and a third 3.7 x 1.8 low-density amita ection near the right lateral penile urethra at the base. In the acute clinical setting prostate and periurethral abscesses are suspected. These could create l ocalized mass effect limiting or restricting catheterization. Large or complex urethral diverticulum would be possible. These could be secondarily inflamed or infe cted. No pyelonephritis or acute renal parenchymal process. No hydronephrosis or obstructing calculus.
[2017-08-09] MEDS ORDERED: Morphine 2 MG/2 ML SYR IV PRN (20:32)
[2017-08-09] MEDS: ENOXAPARIN 30 MG/0.3 ML SQ SCH (20:58)
[2017-08-09] MEDS: ATORVASTATIN 80 MG TAB PO SCH (21:00)
--- NOTE | 2017-08-09 22:51 | EKG ---
Test Date: 2017-08-09 Test Time: 16:29:17 Firewood Cutter: NELSY MEASUREMENT RESULTS: Intervals: Rate: 169 MT: QRSD: 76 QT: 250 QTc: 419 [place]: P: MT: QRS: 54 T: 265 INTERPRETIVE STATEMENTS: Sinus tachycardia ST abnormality, possible inferior subendocardial injury Abnormal ECG Compared to ECG 08/09/2017 09:42:25 ST (T wave) deviation still present Electronically Signed On 08-09-17 22:51:24 CDT by Jose Avila
--- NOTE | 2017-08-10 06:52 | P.DS ---
Discharge Date: 08/09/17 Primary Care Provider: none Disposition: TRANSFER TO [facility] Discharge Condition: GOOD Reason for Admission: Chest pain dysuria Consultations: Urology Brief History of Present Illness: Patient is 62 years of age a poor historian history obtained from family members he has been having chest pain on an off for quite some time became progressively worse eyes having before to for to fight times a day he admission percent and a shaking spell his chest pain is retrosternal patient does smoke a PE he was scheduled to see a primary care physician In addition he complains of dysuria pain in the right growing urinary hesitancy and poor stream digestive of for prostatic hypertrophy Hospital Course: Patient was admitted to the hospital and had a cardiac catheterization. The cardiac catheterization revealed a completely occluded right coronary artery, an 80-90% occlusion of the left circumflex, and mild disease throughout the left anterior descending artery. Patient had a stent placed in the left circumflex. Patient has also had some dysuria. Cota catheter placement was suggestive of strictures. Cystoscopy was post to be performed however patient 8. This was canceled in our urologist had to leave town so we had to transfer patient to a tertiary care facility. We transferred patient is [facility], and we spoke with Cardiology and hospitalist service. They were agreeable to accept the patient and Dr. Bautista had accepted the patient from Dr. Glasgow earlier in the day. Vital Signs/Physical Exam: Temp Pulse Resp BP Pulse Ox 98.7 F 100 H 20 115/72 98 08/09/17 22:00 08/09/17 22:00 08/09/17 22:00 08/09/17 22:00 08/09/17 22:00 General: Alert, In no apparent distress, Oriented x3 Laboratory Data at Discharge: WBC 20.9 K/uL (4.3-10.9) H* 08/09/17 17:00 Hgb 12.4 g/dL (13.6-17.9) L 08/09/17 17:00 Hct 37.9 % (39.6-49.0) L 08/09/17 17:00 Plt Count 122 K/uL (152-406) L D 08/09/17 17:00 PT 15.2 SECONDS (9.5-12.5) H 08/06/17 13:35 INR 1.28 08/06/17 13:35 APTT 26.4 SECONDS (24.3-36.9) 08/06/17 13:35 Sodium 134 mEq/L (135-145) L 08/09/17 17:00 Potassium 4.8 mEq/L (3.6-5.0) 08/09/17 17:00 BUN 21 mg/dL (6-20) H 08/09/17 17:00 Creatinine 1.12 mg/dL (0.61-1.24) 08/09/17 17:00 Glucose 85 mg/dL (65-120) 08/09/17 17:00 Magnesium 1.6 mg/dL (1.8-2.5) L 08/09/17 17:00 Total Bilirubin 0.9 mg/dL (0.3-1.2) 08/09/17 17:00 AST 101 IU/L (10-42) H 08/09/17 17:00 ALT 85 IU/L (10-60) H 08/09/17 17:00 Alkaline Phosphatase 202 IU/L (42-121) H 08/09/17 17:00 B-Natriuretic Peptide 220 pg/ml (<=100) H 08/06/17 13:35 Triglycerides 200 mg/dL (35-160) H 08/08/17 04:44 Cholesterol 106 mg/dL (<200) 08/08/17 04:44 HDL Cholesterol 8 mg/dL (27-67) L 08/08/17 04:44 Cholesterol/HDL Ratio 13.25 08/08/17 04:44 Home Medications: Atorvastatin Calcium [Lipitor] 80 mg PO BEDTIME #30 tab 08/08/17 Clopidogrel Bisulfate [Plavix*] 75 mg PO DAILY #30 tablet 08/08/17 Metoprolol Tartrate [Lopressor*] 25 mg PO BID 6AM 6PM #60 tab 08/08/17 Nitroglycerin [Nitrostat*] 0.4 mg SL UD PRN #1 bottle 08/08/17 New Medications: Atorvastatin Calcium [Lipitor] 80 mg PO BEDTIME #30 tab Clopidogrel Bisulfate [Plavix*] 75 mg PO DAILY #30 tablet Metoprolol Tartrate [Lopressor*] 25 mg PO BID 6AM 6PM #60 tab Nitroglycerin [Nitrostat*] 0.4 mg SL UD PRN #1 bottle PRN Reason: Chest Pain Patient Discharge Instructions: Transfer to tertiary care facility Diet: AHA Activity: Fall precautions Time spent managing pt's care (in minutes): 20
[2017-08-10] MEDS ORDERED: VANCOMYCIN 1 GM in NA CHLORIDE 0.9% 500 ML IVPB SCH (09:00)
--- NOTE | 2017-08-10 12:31 | CON ---
History Of Present Illness: This gentleman who was called on this afternoon as he came in with a happens to be a recent NC, he was seen by Cardiology. He was having frequent chest pains and angina for quite a while now. EKG shows subendocardial injury. The patient is active smoker, noncompliant with medications. He was found to have mild renal insufficiency. 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 They tried a 14-Romansh, would not go either, so I was called to come by and try. The patient gave no past medical history of any BPH or urinary problems that he has known before. His urine is growing Proteus. He is on the appropriate IV antibiotics. Past Medical History: Significant for hypertension. Review of Systems: A 10-point review of systems as mentioned above. Physical Examination: General: He appears ill, _in bed, not speaking much. Family is present. HEENT: Atraumatic, normocephalic. Neck: Supple. Respiratory: Some expiratory wheezes. Gastrointestinal: Normal bowel sounds. Soft abdomen, nondistended bladder. External Genitalia: Both testicles descended. Normal phallus, uncircumcised. Laboratory Data: White count is 20.9, it was as high as 34.7 when he came in. H and H 12 and 37, platelet count 122. Coags, PT 15. Activated clotting time greater than 400. Chemistry; sodium 134, potassium 4.8, chloride 103, carbon dioxide 21, BUN 21, creatinine 1.1, GFR 81. Lactic acid 34. Urine, as I mentioned is growing Proteus, was sensitive to Bactrim, Augmentin, gentamicin, ampicillin, cefazolin, most of the cephalosporins including ceftriaxone, also Unasyn, ciprofloxacin, meropenem. Assessment: The patient had a recent myocardial infarction and urinary tract infection. Dr. Glasgow said the patient was getting better and is clinically worse today. Elevated temperature is concerning about UTI, not able to get anything in his bladder, so I came by, prepped and draped the patient and try to filliform and follower, it passed to about 5 cm into the urethra, like a stricture versus a false passage. I switched to a flexible scope, saw lumen, tried to thread a guidewire through the lumen but it felt like the wire hit against a stricture, so my recommendation would be to do this under anesthesia , the problem is that the patient has had a recent NC and anesthesia, is high risk without a backup available here, so the medical service is thinking of transferring this patient to higher level care where he will able to get Urology , Cardiology and all the backup surgeons in place in case he needs something else done. LETHA/FERN Voice ID: [id number] Report ID: [id number]
== END 2017-08-09 23:00 | disposition short-term general hospital (02) | DRG 247 ==
LOC: ER 13:29 → ERHOLD 14:34 → 3RD-ICU 16:22 → 4TH 08-08 08:48 → 3RD-ICU 08-09 20:00
PROVIDERS: ADMIT Internal Medicine Sleep Medicine; ATTEND Family Medicine
PROC: 027034Z Dilation of Coronary Artery, One Artery with Drug-eluting Intraluminal Device, Percutaneous Approach (ICD-10-PCS; principal; 2017-08-07)
PROC: 4A023N7 Measurement of Cardiac Sampling and Pressure, Left Heart, Percutaneous Approach (ICD-10-PCS; 2017-08-07)
PROC: B201YZZ Plain Radiography of Multiple Coronary Arteries using Other Contrast (ICD-10-PCS; 2017-08-07)
PROC: B205YZZ Plain Radiography of Left Heart using Other Contrast (ICD-10-PCS; 2017-08-07)
DX: I21.4 Non-ST elevation (NSTEMI) myocardial infarction (principal); N39.0 Urinary tract infection, site not specified; E83.42 Hypomagnesemia; N28.9 Disorder of kidney and ureter, unspecified; I10 Essential (primary) hypertension; E78.5 Hyperlipidemia, unspecified
CPT/HCPCS: 36415; 71045; 71046; 74178; 76770; 80048; 80053; 80061; 80076; 80307; 81003; 81015; 82550; 83605; 83735; 83880; 84145; 84484; 85025; 85347; 85610; 85730; 87040; 87077; 87086; 87088; 87186; 92928; 93005; 93458; 96365; 96372; 96375; 97163; 99285; C1725; C1893; J0583; J0696; J1644; J1650; J2250; J2270; J3010; J3475; J7030; J7512; Q9967

== ENCOUNTER 2017-09-15 18:21 | Emergency (ER) | payer SELFPAY ==
--- OUTSIDE RECORDS SUMMARY | 2017-09-15 18:25 | XMS REPORT | Clinical Summary ---
:[address] [facility] Address [address] [place] [address] Phone Care Team Providers Name Role Phone Unavailable Primary Care Provider Unavailable Allergies No Known Allergies Current Medications Prescription Sig. Disp. Refills Start Date End Date Status aspirin 81 MG Take 1 tablet (81 100 tablet 0 08/21/2017 11/29/2017 Active chewable tablet mg total) by mouth daily for 100 days. atorvastatin Take 1 tablet (80 30 tablet 2 08/20/2017 11/18/2017 Active (LIPITOR) 80 MG mg total) by mouth tablet nightly for 90 days. clopidogrel Take 1 tablet (75 30 tablet 2 08/21/2017 11/19/2017 Active (PLAVIX) 75 mg mg total) by mouth tablet daily for 90 days. metoprolol Take 1 tablet (25 60 tablet 2 08/20/2017 11/18/2017 Active (LOPRESSOR) 25 MG mg total) by mouth tablet 2 (two) times daily for 90 days. oxybutynin Take 1 tablet (5 90 tablet 2 08/20/2017 11/18/2017 Active (DITROPAN) 5 MG mg total) by mouth tablet 3 (three) times daily for 90 days. acetaminophen Take 2 tablets 160 tablet 0 08/20/2017 09/09/2017 (TYLENOL) 325 MG (650 mg total) by tablet mouth every 6 (six) hours for 20 days. docusate sodium Take 1 capsule 20 capsule 0 08/20/2017 08/30/2017 (COLACE) 100 MG (100 mg total) by capsule mouth 2 (two) times daily as needed for Constipation for up to 10 days. traMADol (ULTRAM) Take 1 tablet (50 60 tablet 0 08/20/2017 08/30/2017 50 mg tablet mg total) by mouth every 6 (six) hours as needed for up to 10 days. Max Daily Amount: 200 mg metroNIDAZOLE Take 1 tablet (500 60 tablet 0 08/20/2017 09/09/2017 (FLAGYL) 500 MG mg total) by mouth tablet 3 (three) times daily for 20 days. levoFLOXacin Take 1 tablet (750 20 tablet 0 08/20/2017 09/09/2017 (LEVAQUIN) 750 MG mg total) by mouth tablet daily for 20 days. L.acidophil,parac-S Take 1 capsule by 20 capsule 0 08/20/2017 09/09/2017 .therm-Bif. mouth daily for 20 (ASHLEY-Q) 8 billion days. cell Cap per capsule Active Problems Problem Noted Date Lactic acidosis 08/13/2017 Acute blood loss anemia 08/11/2017 Acute postoperative pain 08/11/2017 Metabolic acidosis 08/11/2017 Catheter-associated urinary tract infection (HCC) 08/10/2017 NSTEMI (non-ST elevated myocardial infarction) ([facility]) 08/10/2017 Urethral stricture 08/10/2017 Urinary obstruction 08/10/2017 Leukocytosis 08/10/2017 CAD (coronary artery disease) 08/10/2017 COPD (chronic obstructive pulmonary disease) (HCC) 08/10/2017 Hypertension 08/10/2017 Thrombocytopenia ([facility]) 08/10/2017 Sepsis ([facility]) 08/10/2017 Prostate abscess 08/10/2017 Overview: possible Urinary tract infection without hematuria, site unspecified 08/10/2017 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 Encounters Date Type Specialty Care Team Description 08/13/2017 Anesthesia Event Ladarius Jensen MD 08/13/2017 Procedure Pass 08/13/2017 Surgery Pastuszarosario, DEBRIDEMENT/I&D,WOU Beck Martines ND MD PERINEAL/RECTAL/VUL JOSE 08/13/2017 Procedure Pass 08/10/2017 - Hospital Encounter General Internal Andrés Haynes Cheri's gangrene 08/20/2017 Medicine MD Jose (Primary Nicolas Iqbal Dx);Urinary tract MD Wilfredo infection without Civunigunta, hematuria, site MD William unspecified;Essenti al hypertension;NSTEMI (non-ST elevated myocardial infarction) (HCC);Sepsis, due to unspecified organism (HCC);Urinary obstruction;Acute blood loss anemia;Coronary artery disease involving ruby coronary artery of ruby heart with unstable angina pectoris (HCC);Leukocytosis, unspecified type;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 Anesthesia Event ReYaritza su, HENRY 08/10/2017 Procedure Pass 08/10/2017 Surgery Aguila Bautista MD CYSTOSCOPY,RETROGRA SHAINA 08/10/2017 Orders Only General Internal Medicine after 09/14/2016 Immunizations Name Dates Previously Given Next Due Pneumococcal Conjugate (Prevnar) 13-Valent 08/17/2017 Family History Medical History Relation Name Comments Coronary artery disease Mother Relation Name Status Comments Mother Social History Tobacco Use Types Packs/Day Years Used Date Current Every Day Smoker 3 30 Smokeless Tobacco: Never Used Tobacco Cessation: Ready to Quit: No Alcohol Use Drinks/Week oz/Week Comments No Sex Assigned at Date Recorded Not on file Last Filed Vital Signs Vital Sign Reading Time Taken Blood Pressure 173/68 08/20/2017 7:49 AM CDT Pulse 57 08/20/2017 7:49 AM CDT Temperature 37.2 C (98.9 F) 08/20/2017 7:49 AM CDT Respiratory Rate 16 08/20/2017 7:49 AM CDT Oxygen Saturation 98% 08/20/2017 7:49 AM CDT Inhaled Oxygen Concentration - - Weight 76.4 kg (168 lb 7 oz) 08/10/2017 12:30 AM CDT Height 172.7 cm (5' 8") 08/10/2017 12:30 AM CDT Body Mass Index 25.61 08/10/2017 12:30 AM CDT Plan of Treatment Not on file Procedures Procedure Name Priority Date/Time Associated Diagnosis Comments DEBRIDEMENT/I&D,WOUND 08/13/2017 2:15 PM CDT Cheri's gangrene PERINEAL/RECTAL/VULVAR CYSTOSCOPY,RETROGRADES 08/10/2017 8:00 PM CDT Urinary obstruction after 09/14/2016 Results EKG-SCANNED (08/22/2017 10:30 AM)RHYTHM STRIP - SCAN (08/22/2017 10:30 AM)CBC ( Hemogram only) (08/20/2017 5:06 AM)Only the most recent of12 resultswithin the time period is included. Component Value Ref Range WBC 12.1 (H) 3.5 - 10.5 K/L RBC 2.94 (L) 4.63 - 6.08 M/L Hemoglobin 8.3 (L) 13.7 - 17.5 GM/DL Hematocrit 26.1 (L) 40.1 - 51.0 % MCV 88.8 79.0 - 92.2 fL MCH 28.2 25.7 - 32.2 pg MCHC 31.8 (L) 32.3 - 36.5 GM/DL RDW 14.7 (H) 11.6 - 14.4 % Platelets 438 150 - 450 K/CU MM MPV 9.5 9.4 - 12.4 fL nRBC 0 0 - 0 /100 WBC Specimen Performing Laboratory Blood [address] [address] Phosphorus (08/19/2017 6:35 AM)Only the most recent of10 resultswithin the time period is included. Component Value Ref Range Phosphorus 3.4 2.3 - 4.7 mg/dL Specimen Performing Laboratory Blood - Arm, [address] [address] Magnesium (08/19/2017 6:35 AM)Only the most recent of11 resultswithin the time period is included. Component Value Ref Range Magnesium 1.8 1.6 - 2.6 mg/dL Specimen Performing Laboratory Blood - Arm, [address] [address] Hepatic function panel (08/19/2017 6:35 AM)Only the most recent of2 resultswithin the time period is included. Component Value Ref Range Protein, Total 6.4 6.0 - 8.3 gm/dL Albumin 2.4 (L) 3.5 - 5.0 g/dL Total Bilirubin 0.4 0.2 - 1.2 mg/dL Bilirubin, Direct 0.3 0.1 - 0.5 mg/dL Alkaline Phosphatase 77 40 - 150 U/L AST 30 5 - 34 U/L ALT 29 6 - 55 U/L Specimen Performing Laboratory Blood - Arm, [address] [address] Basic metabolic panel (08/19/2017 6:35 AM)Only the most recent of11 resultswithin the time period is included. Component Value Ref Range Sodium 136 136 - 145 meq/L Potassium 4.6 3.5 - 5.1 meq/L Chloride 103 98 - 107 meq/L CO2 26 22 - 29 meq/L BUN 9 7 - 21 mg/dL Creatinine 0.72 0.57 - 1.25 mg/dL Glucose 99 70 - 105 mg/dL Calcium 8.4 8.4 - 10.2 mg/dL EGFR 134Comment: ESTIMATED GFR IS NOT ACCURATE mL/min/1.73 sq m CREATININE CLEARANCE IN PREDICTING GLOMERULAR FILTRATION RATE. ESTIMATED GFR IS NOT APPLICABLE FOR DIALYSIS PATIENTS. Specimen Performing Laboratory Blood - Arm, Left [facility] [address] [place] [id number] ECG 12 lead (08/17/2017 6:49 PM)Only the most recent of3 resultswithin the time period is included. Specimen Performing Laboratory GE MUSE Narrative Ventricular Rate 70 BPM Atrial Rate 70 BPM P-R Interval 136 ms QRS Duration 78 ms Q-T Interval 422 ms QTC Calculation(Bazett) 455 ms P Horicon 66 degrees R Horicon 20 degrees T Horicon 25 degrees Normal sinus rhythm Nonspecific T wave abnormality Abnormal ECG When compared with ECG of 12-AUG-2017 17:15, Premature ventricular complexes are no longer Present Premature atrial complexes are no longer Present Nonspecific T wave abnormality now evident in Inferior leads T wave inversion less evident in Anterior leads QT has shortened Confirmed by MD KAYLI, IHAB ([id number]) on 08/18/2017 10:01:45 PM Procedure Note Interface, External Ris In - 08/18/2017 10:01 PM CDT Ventricular Rate 70 BPM Atrial Rate 70 BPM P-R Interval 136 ms QRS Duration 78 ms Q-T Interval 422 ms QTC Calculation(Bazett) 455 ms P Horicon 66 degrees R Horicon 20 degrees T Horicon 25 degrees Normal sinus rhythm Nonspecific T wave abnormality Abnormal ECG When compared with ECG of 12-AUG-2017 17:15, Premature ventricular complexes are no longer Present Premature atrial complexes are no longer Present Nonspecific T wave abnormality now evident in Inferior leads T wave inversion less evident in Anterior leads QT has shortened Confirmed by MD KAYLI, IHAB ([id number]) on 08/18/2017 10:01:45 PM Vancomycin level, trough (08/16/2017 5:37 PM)Only the most recent of3 resultswithin the time period is included. Component Value Ref Range Vancomycin Tr 15.7 10.0 - 20.0 ug/mL Specimen Performing Laboratory Blood - Arm, Left [address] [address] POC-Glucose meter (08/16/2017 9:00 AM)Only the most recent of21 resultswithin the time period is included. Component Value Ref Range POC-Glucose Meter 85Comment: TESTED AT [address] [place] 70 - 110 mg/dL [id number] Specimen Performing Laboratory Blood [address] [address] Hemoglobin and hematocrit (08/15/2017 2:06 PM)Only the most recent of2 resultswithin the time period is included. Component Value Ref Range Hemoglobin 9.5 (L) 13.7 - 17.5 GM/DL Hematocrit 29.1 (L) 40.1 - 51.0 % Specimen Performing Laboratory Blood [address] [address] Lactic acid, venous, whole blood Daily (08/15/2017 4:43 AM)Only the most recent of5 resultswithin the time period is included. Component Value Ref Range Lactate, Venous 1.2Comment: Specimen slightly hemolyzed 0.5 - 2.2 mmol/L Specimen Performing Laboratory Blood [address] [address] Narrative Effective 07/22/2015: Units/Reference Range Change New: 0.5-2.2 mmol/LPrevious: 5-20 mg/dL ECHOCARDIOGRAM REPORT - SCAN (08/13/2017 4:20 PM)Anaerobic culture (08/13/2017 3:12 PM) Component Value Ref Range Result 1+ (A)Comment: * - Anaerobic gram variable coccobacilli Result 1+ Peptoniphilus asaccharolyticus (A) Result <1+ Prevotella bivia (A) Result 1+ Gram negative coccobacillus (A) Specimen Performing Laboratory Other - Scrotum [address] [address] Surgically obtained culture + gram stain (08/13/2017 3:12 PM)Only the most recent of2 resultswithin the time period is included. Component Value Ref Range Result 1+ Actinomyces species (A) Result <1+ Proteus mirabilis (A)Comment: ESBL Positive Gram Stain Result <1+ WBCs Gram Stain Result 1+ gram positive cocci in pairs and clusters Specimen Performing Laboratory Other - [address] [address] Narrative Organism(s) under evaluation Organism Antibiotic Method Susceptibility Proteus mirabilis Amikacin <=2: Susceptible Proteus mirabilis Ampicillin + Sulbactam Resistant Proteus mirabilis Aztreonam 8: Resistant Proteus mirabilis Cefepime Resistant Proteus mirabilis Cefoxitin Resistant Proteus mirabilis Ceftazidime Resistant Proteus mirabilis Ceftriaxone Resistant Proteus mirabilis Ertapenem <=0.5: Susceptible Proteus mirabilis Gentamicin <=1: Susceptible Proteus mirabilis Levofloxacin <=0.12: Susceptible Proteus mirabilis Meropenem 1: Susceptible Proteus mirabilis Piperacillin + Tazobactam Resistant Proteus mirabilis Tetracycline 8: Resistant Proteus mirabilis Tobramycin <=1: Susceptible Proteus mirabilis Trimethoprim + Sulfamethoxazole <=20: Susceptible Fungus culture + smear (08/13/2017 3:12 PM) Component Value Ref Range Result No fungus isolated in 28 days Fungus Smear No fungi seen Specimen Performing Laboratory Other [address] [address] SPIN/CONCENTRATION CHARGE (08/13/2017 3:12 PM) Component Value Ref Range Concentration charged Done Specimen Performing Laboratory [facility] - [address] [address] POC-Lactic Acid, Arterial (08/13/2017 2:22 PM)Only the most recent of2 resultswithin the time period is included. Component Value Ref Range POC-Lactic Acid, Arterial 1.1Comment: TESTED AT [address] 0.4 - 1.3 mmol/L [facility] [address] Specimen Performing Laboratory Blood [address] [address] [address] pelvis with IV contrast (08/13/2017 12:46 PM) Specimen Performing Laboratory GE RIS Narrative FINAL REPORT DOSE REDUCTION: The examination was performed according to departmental dose-optimization program which includes automated exposure control, adjustment of the mA and/or kV according to patient size and/or use of iterative reconstruction technique. COMPARISON: Fluoroscopic images, 08/10/2012, no previous CT available for direct comparison TECHNIQUE: CT of the pelvis with intravenous contrast. Discussion: Patient is status post recent urethral stricture dilatation and placement of Cota catheter. There are multiple foci of nonorganized gas surrounding the penile shaft. Some of the gas extends towards the right and anteriorly onto the subcutis tissues of the mons. A small fluid and gas collection also tracks along the base of the penis posteriorly measuring 4.1 x 1.6 cm. This extends cephalad and collects posterior to the bulbar urethra. The latter component measures about 4 x 3 cm. While these findings may be related to recent instrumentation of postsurgical change infection or abscess should be considered. There is no gas in the scrotal sac to suggest Cheri's gangrene. No fluid collections elsewhere in the pelvis. There is presacral edema and stranding. Cota catheter is collapsed. Prostatic calcifications are seen. There is soft tissue anasarca. Fluid in the scrotal sac identified. Vascular calcifications are seen. There is colonic diverticulosis. No findings of diverticulitis. Of note, bowel is incompletely assessed as an abdomen CT is not performed. A cyst is partially depicted in the right lower abdomen. The portion imaged measures 5.5 cm. No acute skeletal abnormality. IMPRESSION: 1. Small amounts of fluid and gas surrounding the penile shaft, extending posteriorly and cephalad to the level of the bulbar urethra, and towards the right and anteriorly to the subcutaneous tissues of the mons. Infection/abscess cannot excluded. Correlation with history recommended. 2. Small amount of presacral edema and stranding. No fluid collections elsewhere in the pelvis. Soft tissue anasarca. Signed: Lb Julio MD Report Verified Date/Time:08/13/2017 17:27:43 Reading Location: [address] Transitional Reading Room Procedure Note Interface, External Ris In - 08/13/2017 5:29 PM CDT FINAL REPORT DOSE REDUCTION: The examination was performed according to departmental dose-optimization program which includes automated exposure control, adjustment of the mA and/or kV according to patient size and/or use of iterative reconstruction technique. COMPARISON: Fluoroscopic images, 08/10/2012, no previous CT available for direct comparison TECHNIQUE: CT of the pelvis with intravenous contrast. Discussion: Patient is status post recent urethral stricture dilatation and placement of Cota catheter. There are multiple foci of nonorganized gas surrounding the penile shaft. Some of the gas extends towards the right and anteriorly onto the subcutis tissues of the mons. A small fluid and gas collection also tracks along the base of the penis posteriorly measuring 4.1 x 1.6 cm. This extends cephalad and collects posterior to the bulbar urethra. The latter component measures about 4 x 3 cm. While these findings may be related to recent instrumentation of postsurgical change infection or abscess should be considered. There is no gas in the scrotal sac to suggest Cheri's gangrene. No fluid collections elsewhere in the pelvis. There is presacral edema and stranding. Cota catheter is collapsed. Prostatic calcifications are seen. There is soft tissue anasarca. Fluid in the scrotal sac identified. Vascular calcifications are seen. There is colonic diverticulosis. No findings of diverticulitis. Of note, bowel is incompletely assessed as an abdomen CT is not performed. A cyst is partially depicted in the right lower abdomen. The portion imaged measures 5.5 cm. No acute skeletal abnormality. IMPRESSION: 1. Small amounts of fluid and gas surrounding the penile shaft, extending posteriorly and cephalad to the level of the bulbar urethra, and towards the right and anteriorly to the subcutaneous tissues of the mons. Infection/abscess cannot excluded. Correlation with history recommended. 2. Small amount of presacral edema and stranding. No fluid collections elsewhere in the pelvis. Soft tissue anasarca. Signed: Lb Julio MD Report Verified Date/Time: 08/13/2017 17:27:43 Reading Location: [address] Transitional Reading Room Blood culture #2 (08/13/2017 12:19 PM)Only the most recent of2 resultswithin the time period is included. Component Value Ref Range Result No growth in 5 days Specimen Performing Laboratory Blood - Arm, Left [facility] [address] [address] Urinalysis w/ Microscopic (08/13/2017 11:19 AM) Component Value Ref Range Color, UA Yellow Clarity, UA Clear Specific [place], UA 1.020 1.001 - 1.035 pH, UA 5.5 5.0 - 8.0 Protein, UA 30 mg/dL (A) Negative Glucose, UA Negative Negative Ketones, UA Negative Negative Bilirubin, UA Negative Negative Blood, UA Small (A) Negative Nitrite, UA Negative Negative Leukocytes, UA Negative Negative Urobilinogen, UA 3.0 (H) 0.2 - 1.0 mg/dL RBC, UA 3 /HPF WBC, UA 2 /HPF Mucus Rare Hyaline Casts, UA 2 /LPF Specimen Source Urine, Cota Specimen Performing Laboratory Urine - Urine, [address] [address] Urine culture (08/13/2017 11:19 AM) Component Value Ref Range Result No growth Specimen Performing Laboratory Urine - Urine, [address] [address] HIV-1 Antigen with HIV-1/2 Antibody (08/13/2017 11:13 AM) Component Value Ref Range HIV-1 Antigen with HIV 1&2 Antibody Nonreactive Nonreactive Specimen Performing Laboratory Blood - Arm, [address] [address] Hepatitis panel, acute (08/13/2017 11:13 AM) Component Value Ref Range Hep A IgM Nonreactive Nonreactive Hep B C IgM Nonreactive Nonreactive Hepatitis C Ab Nonreactive Nonreactive hepatitis B Surface Ag Nonreactive Nonreactive Specimen Performing Laboratory Blood - Arm, [address] [address] 2D Echo W/Doppler(CW/PW/Color) (08/13/2017 7:47 AM) Component Value Ref Range Ejection Fraction Specimen Performing Laboratory [facility] MKCKESSON CPA Narrative Transthoracic Echocardiography Report (TTE) Demographics Patient Name JORGE ALFARO Date of Study08/13/2017 [id number] Male Visit Number [id number] Black Accession Number [id number] Room [id number] Date of Birth1955Referring PhysicianSnella Kennedy Age62 year(s)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 Clinical History CYSTOSCOPY RETROGRADES 08/10/17, COPD, HTN, PULMONARY DISEASE HGB 11.3 HCT 34.0 % Height: 68 inches Weight: 76.2 kg (168 lbs) BSA: 1.9 m^2 BMI: 25.54 kg/m^2 HR: 80 bpm BP: 131/62 mmHg Summary 1. Normal LV size. LV function is normal. LVEF is 55-60% 2. Diastology: Grade 1 diastolic dysfunction. 3. Normal RV size. Depressed RV function 4. No significant valvular heart disease 5. Trace TR. Unable to estimate PASP 6. Trace pericardial effusion noted. Previous Study There is no previous echo for comparison. Signature Findings Left Ventricle The left ventricle is chamber size (by PSLAX dimension) is normal (male - LVIDd 4.2-5.8cm) . No evidence of LV hypertrophy. All of the LV segments contract normally . Global LV systolic function normal . Estimated LVEF by qualitative assessment is normal (55-60%) . Grade 1 diastolic dysfunction (impaired relaxation and low- normal LA pressure). Left AtriumLA size is normal . Right VentricleNormal right ventricle structure and function. Right Atrium Normal right atrium. Aortic Valve A trace of aortic regurgitation. Mild AoV cusp thickening. Mitral Valve Normal MV structure and function. Tricuspid ValveA trace of tricuspid regurgitation. Unable to estimate peak systolic PA pressure; inadequate TR velocity signal. Pulmonic Valve Normal PV structure and function by limited views and Doppler. AortaAortic root size (SInus of Valsalva diameter) is normal . PericardiumA trivial pericardial effusion is present . IVC/SVC/PA/PV/PleuralThe estimated RA pressure by IVC dynamics 5-10mmHg . Chambers/Structures Left Atrium LA Dimension: 3.46 cmLA Area: 18.16 cm^2 LA Volume: 52.76 ml LA Vol. Index: 28 ml/m^2 Left Ventricle LVIDd: 5.31 cm LV Septum Diastolic: 1.07 cm LV PW Diastolic: 1.06 cm LVEDV Pat's:107.29 ml LVESV Pat's:41.19 ml LVEF Pat's: 61.6 %LVEDVI: 56 ml/m^2 LVESVI: 22 ml/m^2 LVOT Diameter: 2.29 cm Aorta Ao Root S of Leslie.: 3.39 cm Doppler/Quantitative Measurements LVOT Peak Velocity: 1.35 m/s Peak Gradient: 7.26 mmHg Mean Velocity: 0.71 m/s Mean Gradient: 2.63 mmHg LVOT Diameter: 2.29 cmLVOT VTI: 17.3 cm LVOT Area: 4.12 cm^2LVOT SV:71.22 ml LVOT CO: 5.7 l/minLVOT CI: 3 l/min/m^2 Procedure Note Interface, External Ris In - 08/13/2017 3:48 PM CDT Transthoracic Echocardiography Report (TTE) Demographics Patient Name ALFARO, RAY Date of Study 08/13/2017 Gender Male Visit Number [id number] Race Black Accession Number [id number] Room Number [id number] Date of 1955 Referring Physician Naomie Kennedy Age 62 year(s) 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 Clinical History CYSTOSCOPY RETROGRADES 08/10/17, COPD, HTN, PULMONARY DISEASE HGB 11.3 HCT 34.0 % Height: 68 inches Weight: 76.2 kg (168 lbs) BSA: 1.9 m^2 BMI: 25.54 kg/m^2 HR: 80 bpm BP: 131/62 mmHg Summary 1. Normal LV size. LV function is normal. LVEF is 55-60% 2. Diastology: Grade 1 diastolic dysfunction. 3. Normal RV size. Depressed RV function 4. No significant valvular heart disease 5. Trace TR. Unable to estimate PASP 6. Trace pericardial effusion noted. Previous Study There is no previous echo for comparison. Signature Findings Left Ventricle The left ventricle is chamber size (by PSLAX dimension) is normal (male - LVIDd 4.2-5.8cm) . No evidence of LV hypertrophy. All of the LV segments contract normally . Global LV systolic function normal . Estimated LVEF by qualitative assessment is normal (55-60%) . Grade 1 diastolic dysfunction (impaired relaxation and low-normal LA pressure). Left Atrium LA size is normal . Right Ventricle Normal right ventricle structure and function. Right Atrium Normal right atrium. Aortic Valve A trace of aortic regurgitation. Mild AoV cusp thickening. Mitral Valve Normal MV structure and function. Tricuspid Valve A trace of tricuspid regurgitation. Unable to estimate peak systolic PA pressure; inadequate TR velocity signal. Pulmonic Valve Normal PV structure and function by limited views and Doppler. Aorta Aortic root size (SInus of Valsalva diameter) is normal . Pericardium A trivial pericardial effusion is present . IVC/SVC/PA/PV/Pleural The estimated RA pressure by IVC dynamics 5-10mmHg . Chambers/Structures Left Atrium LA Dimension: 3.46 cm LA Area: 18.16 cm^2 LA Volume: 52.76 ml LA Vol. Index: 28 ml/m^2 Left Ventricle LVIDd: 5.31 cm LV Septum Diastolic: 1.07 cm LV PW Diastolic: 1.06 cm LVEDV Pat's:107.29 ml LVESV Pat's:41.19 ml LVEF Pat's: 61.6 % LVEDVI: 56 ml/m^2 LVESVI: 22 ml/m^2 LVOT Diameter: 2.29 cm Aorta Ao Root S of Leslie.: 3.39 cm Doppler/Quantitative Measurements LVOT Peak Velocity: 1.35 m/s Peak Gradient: 7.26 mmHg Mean Velocity: 0.71 m/s Mean Gradient: 2.63 mmHg LVOT Diameter: 2.29 cm LVOT VTI: 17.3 cm LVOT Area: 4.12 cm^2 LVOT SV:71.22 ml LVOT CO: 5.7 l/min LVOT CI: 3 l/min/m^2 PERIPHERAL VASCULAR REPORT - SCAN (08/13/2017 7:20 AM)Arterial doppler arms bilateral (08/12/2017 8:00 PM) Component Value Ref Range Ejection Fraction Specimen Performing Laboratory [facility] MK[facility]ON [facility] Impressions Right Impression 1. The subclavian, axillary, brachial, radial and ulnar arteries are patent with triphasic/biphasic Doppler waveforms and scattered calcification throughout. Left Impression 1. The subclavian, axillary, brachial, radial and ulnar arteries are patent with triphasic/biphasic Doppler waveforms and scattered calcification throughout. Conclusions Summary Arterial Duplex imaging was performed bilaterally. Adequate Doppler signals were obtained. No evidence of hemodynamically significant arterial disease. Signature Velocities are measured in cm/s ; Diameters are measured in cm Right Upper Extremities Duplex Measurements + +----+-----+----+---------+ !Location !PSV !Ratio!Diam!Waveform ! + +----+-----+----+---------+ !Prox Subclavian !134 ! !!Triphasic! + +----+-----+----+---------+ !Dist Subclavian !113 !0.84 !!Triphasic! + +----+-----+----+---------+ !Dist Axillary !99.8!0.88 !!Triphasic! + +----+-----+----+---------+ !Prox Brachial !128 !1.28 !!Triphasic! + +----+-----+----+---------+ !Mid Brachial !172 !1.34 !!Triphasic! + +----+-----+----+---------+ !Dist Brachial !158 !0.92 !!Triphasic! + +----+-----+----+---------+ !Prox Radial !105 !0.66 !!Biphasic ! + +----+-----+----+---------+ !Mid Radial !11 2 !1.07 !!Biphasic ! + +----+-----+----+---------+ !Dist Radial !132 !1.18 !!Biphasic ! + +----+-----+----+---------+ !Prox Ulnar !132 !0.84 !!Biphasic ! + +----+-----+----+---------+ !Mid Ulnar !73.9!0.56 !!Biphasic ! + +----+-----+----+---------+ !Dist Ulnar !105 !1.42 !!Biphasic ! + +----+-----+----+---------+ Left Upper Extremities Duplex Measurements + +----+-----+----+---------+ !Location !PSV !Ratio!Diam!Waveform ! + +----+-----+----+---------+ !Prox Subclavian !131 ! !!Triphasic! + +----+-----+----+---------+ !Dist Subclavian !102 !0.78 !!Triphasic! + +----+-----+----+---------+ !Dist Axillary !89.4!0.88 !!Triphasic! + +----+-----+----+---------+ !Prox Brachial !111 !1.24 !!Triphasic! + +----+-----+----+---------+ !Dist Brachial !178 !1.6!!Triphasic! + +----+-----+----+---------+ !Prox Radial !120 !0.67 !!Biphasic ! + +----+-----+----+---------+ !Mid Radial !89 .6!0.75 !!Biphasic ! + +----+-----+----+---------+ !Dist Radial !99!1.1!!Biphasic ! + +----+-----+----+---------+ !Prox Ulnar !187 !1.05 !!Biphasic ! + +----+-----+----+---------+ !Mid Ulnar !68.6!0.37 !!Biphasic ! + +----+-----+----+---------+ !Dist Ulnar !66. 8!0.97 !!Biphasic ! + +----+-----+----+---------+ Narrative [facility] - Upper Extremities Arterial Duplex Demographics Patient Name JORGE ALFARO Date of Study 08/12/2017 [id number] Visit Number [id number] Male Accession Number [id number] of 1955 Geno Valenzuela Room Number 8891 Camelia Healy. MADELIN GonzalezT Physician , JUAN Procedure Type of Study: Extremities Arteries: Upper Extremities Arterial Duplex, ARTERIAL DOPPLER ARMS, BILATERAL. Indications for Study:Cool extremity. Patient Status:Routine. Study Location:Portable. Technical Quality:Adequate visualization. Risk Factors History of Disease + + + + !Diagnosis !Date!Comments ! + + + + !History/Risk!08/12/2017!S/P cardiac stent x 1 week! !Factors:!!Hands pale and cool to the touch! !!!(resolved) ! + + + + Procedure Note Interface, External Ris In - 08/12/2017 9:04 PM CDT [facility] - Upper Extremities Arterial Duplex Demographics Patient Name JORGE ALFARO Date of Study 08/12/2017 Age 62 Visit Number [id number] Gender Male Accession Number [id number] Date of 1955 Referring Farida Valenzuela Room Number [id number] Physician Wilfredo Small Animal Caretaker Lorna Dumont Interpreting Mynor Tay T Physician , RPVI Procedure Type of Study: Extremities Arteries: Upper Extremities Arterial Duplex, ARTERIAL DOPPLER ARMS, BILATERAL. Indications for Study:Cool extremity. Patient Status:Routine. Study Location:Portable. Technical Quality:Adequate visualization. Risk Factors History of Disease + + + + !Diagnosis !Date !Comments ! + + + + !History/Risk !08/12/2017!S/P cardiac stent x 1 week ! !Factors: ! !Hands pale and cool to the touch ! ! ! !(resolved) ! + + + + Impressions Right Impression 1. The subclavian, axillary, brachial, radial and ulnar arteries are patent with triphasic/biphasic Doppler waveforms and scattered calcification throughout. Left Impression 1. The subclavian, axillary, brachial, radial and ulnar arteries are patent with triphasic/biphasic Doppler waveforms and scattered calcification throughout. Conclusions Summary Arterial Duplex imaging was performed bilaterally. Adequate Doppler signals were obtained. No evidence of hemodynamically significant arterial disease. Signature Velocities are measured in cm/s ; Diameters are measured in cm Right Upper Extremities Duplex Measurements + +----+-----+----+---------+ !Location !PSV !Ratio!Diam!Waveform ! + +----+-----+----+---------+ !Prox Subclavian !134 ! ! !Triphasic! + +----+-----+----+---------+ !Dist Subclavian !113 !0.84 ! !Triphasic! + +----+-----+----+---------+ !Dist Axillary !99.8!0.88 ! !Triphasic! + +----+-----+----+---------+ !Prox Brachial !128 !1.28 ! !Triphasic! + +----+-----+----+---------+ !Mid Brachial !172 !1.34 ! !Triphasic! + +----+-----+----+---------+ !Dist Brachial !158 !0.92 ! !Triphasic! + +----+-----+----+---------+ !Prox Radial !105 !0.66 ! !Biphasic ! + +----+-----+----+---------+ !Mid Radial !112 !1.07 ! !Biphasic ! + +----+-----+----+---------+ !Dist Radial !132 !1.18 ! !Biphasic ! + +----+-----+----+---------+ !Prox Ulnar !132 !0.84 ! !Biphasic ! + +----+-----+----+---------+ !Mid Ulnar !73.9!0.56 ! !Biphasic ! + +----+-----+----+---------+ !Dist Ulnar !105 !1.42 ! !Biphasic ! + +----+-----+----+---------+ Left Upper Extremities Duplex Measurements + +----+-----+----+---------+ !Location !PSV !Ratio!Diam!Waveform ! + +----+-----+----+---------+ !Prox Subclavian !131 ! ! !Triphasic! + +----+-----+----+---------+ !Dist Subclavian !102 !0.78 ! !Triphasic! + +----+-----+----+---------+ !Dist Axillary !89.4!0.88 ! !Triphasic! + +----+-----+----+---------+ !Prox Brachial !111 !1.24 ! !Triphasic! + +----+-----+----+---------+ !Dist Brachial !178 !1.6 ! !Triphasic! + +----+-----+----+---------+ !Prox Radial !120 !0.67 ! !Biphasic ! + +----+-----+----+---------+ !Mid Radial !89.6!0.75 ! !Biphasic ! + +----+-----+----+---------+ !Dist Radial !99 !1.1 ! !Biphasic ! + +----+-----+----+---------+ !Prox Ulnar !187 !1.05 ! !Biphasic ! + +----+-----+----+---------+ !Mid Ulnar !68.6!0.37 ! !Biphasic ! + +----+-----+----+---------+ !Dist Ulnar !66.8!0.97 ! !Biphasic ! + +----+-----+----+---------+ XR chest 1 view portable / bedside (08/12/2017 4:46 PM) Specimen Performing Laboratory GE RIS Narrative FINAL REPORT TECHNIQUE: Single view of the chest. COMPARISON: None FINDINGS: The cardiac silhouette is within normal limits.Mediastinum is unremarkable. Lungs are clear.No acute skeletal abnormality. Soft tissues appear unremarkable. IMPRESSION: No acute cardiopulmonary disease. Signed: Lb Julio MD Report Verified Date/Time:08/12/2017 16:59:38 Reading Location: [address] Transitional Reading Room Procedure Note Interface, External Ris In - 08/12/2017 5:10 PM CDT FINAL REPORT TECHNIQUE: Single view of the chest. COMPARISON: None FINDINGS: The cardiac silhouette is within normal limits. Mediastinum is unremarkable. Lungs are clear. No acute skeletal abnormality. Soft tissues appear unremarkable. IMPRESSION: No acute cardiopulmonary disease. Signed: Lb Julio MD Report Verified Date/Time: 08/12/2017 16:59:38 Reading Location: [address] Transitional Reading Room Vancomycin level, random (08/11/2017 3:46 AM) Component Value Ref Range Vancomycin Rm 8.7 ug/mL Specimen Performing Laboratory Blood - Arm, Left [address] [address] Narrative Reference Range: No Normals Calcium, Ionized (08/10/2017 11:15 PM) Component Value Ref Range Calcium, Ion 1.13 1.12 - 1.27 mmol/L pH, Blood 7.37 Specimen Performing Laboratory Blood [address] [address] [place] straddle bug in or 30 minute increments (08/10/2017 10:30 PM) Specimen Performing Laboratory GE RIS Narrative PROCEDURE PERFORMED IN O.R. - PLEASE REFER TO THE INTRAOPERATIVE REPORT. Procedure Note Interface, External Ris In - 08/30/2017 11:35 AM CDT PROCEDURE PERFORMED IN O.R. - PLEASE REFER TO THE INTRAOPERATIVE REPORT. aPTT (08/10/2017 4:06 PM) Component Value Ref Range PTT 38.0 (H) 22.5 - 36.0 seconds Specimen Performing Laboratory Blood - Arm, Right [address] [address] Prothrombin time/INR (08/10/2017 4:06 PM) Component Value Ref Range Protime 14.0 11.7 - 14.7 seconds INR 1.1 <=5.9 Specimen Performing Laboratory Blood - Arm, Right [facility] [address] [address] Narrative RECOMMENDED COUMADIN/WARFARIN INR THERAPY RANGES STANDARD DOSE: 2.0 - 3.0 Includes: PROPHYLAXIS for venous thrombosis, systemic embolization; TREATMENT for venous thrombosis and/or pulmonary embolus. HIGH RISK: Target INR is 2.5-3.5 for patients with mechanical heart valves. after 09/14/2016
--- OUTSIDE RECORDS SUMMARY | 2017-09-15 18:26 | XMS REPORT ---
:1955 [facility] Address [address] [place] [address] Care Team Providers Name Role Phone ERICA MARR Unavailable Unavailable Problems This patient has no known problems. Allergies, Adverse Reactions, Alerts This patient has no known allergies or adverse reactions. Medications This patient has no known medications. 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 - PLEASE REFER TO THE INTRAOPERATIVE REPORT. SURGICALLY OBTAINED CULTURE + GRAM [id number] 15:30: 00 Test Item Value Reference Range Comments CULTURE (BEAKER) <1+ Proteus mirabilisESBL (test ytfn=4687) Positive GRAM STAIN RESULT <1+ WBCs (BEAKER) (test ihsz=7145) GRAM STAIN RESULT 1+ gram positive cocci (BEAKER) (test in pairs and clusters tqjk=[id number]) Organism(s) under evaluationANAEROBIC [id number] 19:23:00 Test Item Value Reference Range Comments CULTURE (BEAKER) (test 1+ 1+ Gram negative coccobacillus bsnj=1654) CBC (HEMOGRAM ONLY)2017-08-20 05:14:00 Test Item Value Reference Range Comments WHITE BLOOD CELL COUNT (BEAKER) (test ytua=229) 12.1 K/ L 3.5-10.5 RED BLOOD CELL COUNT (BEAKER) (test blmu=105) 2.94 M/ L 4.63-6.08 HEMOGLOBIN (BEAKER) (test fiia=328) 8.3 GM/DL 13.7-17.5 HEMATOCRIT (BEAKER) (test febx=406) 26.1 % 40.1-51.0 MEAN CORPUSCULAR VOLUME (BEAKER) (test npjb=879) 88.8 fL 79.0-92.2 MEAN CORPUSCULAR HEMOGLOBIN (BEAKER) (test 28.2 pg 25.7-32.2 tqwb=471) MEAN CORPUSCULAR HEMOGLOBIN CONC (BEAKER) (test 31.8 GM/DL 32.3-36.5 aajs=423) RED CELL DISTRIBUTION WIDTH (BEAKER) (test 14.7 % 11.6-14.4 lgai=237) PLATELET COUNT (BEAKER) (test lckt=933) 438 K/CU MM 150-450 MEAN PLATELET VOLUME (BEAKER) (test qqpn=852) 9.5 fL 9.4-12.4 NUCLEATED RED BLOOD CELLS (BEAKER) (test 0 /100 WBC 0-0 sghj=058) [id number] 08:01:00 Test Item Value Reference Range Comments PHOSPHORUS (BEAKER) (test foja=134) 3.4 mg/dL 2.3-4.7 [id number] 08:01:00 Test Item Value Reference Range Comments MAGNESIUM (BEAKER) (test anyr=365) 1.8 mg/dL 1.6-2.6 BASIC METABOLIC [id number] 08:01:00 Test Item Value Reference Range Comments SODIUM (BEAKER) (test 136 meq/L 136-145 thvo=552) POTASSIUM (BEAKER) (test 4.6 meq/L 3.5-5.1 redb=062) CHLORIDE (BEAKER) (test 103 meq/L 98-107 vunn=998) CO2 (BEAKER) (test 26 meq/L 22-29 digm=822) BLOOD UREA NITROGEN 9 mg/dL 7-21 (BEAKER) (test eavq=922) CREATININE (BEAKER) (test 0.72 mg/dL 0.57-1.25 ywjm=502) GLUCOSE RANDOM (BEAKER) 99 mg/dL 70-105 (test cvmu=294) CALCIUM (BEAKER) (test 8.4 mg/dL 8.4-10.2 lmvn=016) EGFR (BEAKER) (test 134 mL/min/1.73 sq m ESTIMATED GFR IS NOT kshl=4426) ACCURATE CREATININE CLEARANCE IN PREDICTING GLOMERULAR FILTRATION RATE. ESTIMATED GFR IS NOT APPLICABLE FOR DIALYSIS PATIENTS. HEPATIC FUNCTION [id number] 08:01:00 Test Item Value Reference Range Comments TOTAL PROTEIN (BEAKER) (test bgls=524) 6.4 gm/dL 6.0-8.3 ALBUMIN (BEAKER) (test uboe=5074) 2.4 g/dL 3.5-5.0 BILIRUBIN TOTAL (BEAKER) (test jjia=875) 0.4 mg/dL 0.2-1.2 BILIRUBIN DIRECT (BEAKER) (test abqq=258) 0.3 mg/dL 0.1-0.5 ALKALINE PHOSPHATASE (BEAKER) (test sard=677) 77 U/L 40-150 AST (SGOT) (BEAKER) (test qvfp=326) 30 U/L 5-34 ALT (SGPT) (BEAKER) (test yrlv=904) 29 U/L 6-55 CBC (HEMOGRAM ONLY)2017-08-19 07:23:00 Test Item Value Reference Range Comments WHITE BLOOD CELL COUNT (BEAKER) (test csag=830) 14.4 K/ L 3.5-10.5 RED BLOOD CELL COUNT (BEAKER) (test zxhd=275) 2.96 M/ L 4.63-6.08 HEMOGLOBIN (BEAKER) (test iepj=731) 8.4 GM/DL 13.7-17.5 HEMATOCRIT (BEAKER) (test rfda=032) 26.6 % 40.1-51.0 MEAN CORPUSCULAR VOLUME (BEAKER) (test ntxo=490) 89.9 fL 79.0-92.2 MEAN CORPUSCULAR HEMOGLOBIN (BEAKER) (test 28.4 pg 25.7-32.2 ueud=461) MEAN CORPUSCULAR HEMOGLOBIN CONC (BEAKER) (test 31.6 GM/DL 32.3-36.5 mafr=596) RED CELL DISTRIBUTION WIDTH (BEAKER) (test 15.0 % 11.6-14.4 fwtr=572) PLATELET COUNT (BEAKER) (test gfpy=994) 431 K/CU MM 150-450 MEAN PLATELET VOLUME (BEAKER) (test utii=357) 10.1 fL 9.4-12.4 NUCLEATED RED BLOOD CELLS (BEAKER) (test 0 /100 WBC 0-0 pyyw=569) BLOOD [id number] 18:00:00 Test Item Value Reference Range Comments CULTURE (BEAKER) (test jogk=6200) No growth in 5 days BLOOD [id number] 18:00:00 Test Item Value Reference Range Comments CULTURE (BEAKER) (test qhpd=2818) No growth in 5 days [id number] 08:50:00 Test Item Value Reference Range Comments PHOSPHORUS (BEAKER) (test tzyt=731) 3.2 mg/dL 2.3-4.7 [id number] 08:50:00 Test Item Value Reference Range Comments MAGNESIUM (BEAKER) (test skuf=914) 1.7 mg/dL 1.6-2.6 BASIC METABOLIC [id number] 08:50:00 Test Item Value Reference Range Comments SODIUM (BEAKER) (test 138 meq/L 136-145 asjp=071) POTASSIUM (BEAKER) (test 4.3 meq/L 3.5-5.1 vylk=022) CHLORIDE (BEAKER) (test 105 meq/L 98-107 mjbl=380) CO2 (BEAKER) (test 26 meq/L 22-29 lihs=632) BLOOD UREA NITROGEN 9 mg/dL 7-21 (BEAKER) (test wwad=364) CREATININE (BEAKER) (test 0.72 mg/dL 0.57-1.25 issp=459) GLUCOSE RANDOM (BEAKER) 94 mg/dL 70-105 (test smzc=157) CALCIUM (BEAKER) (test 8.6 mg/dL 8.4-10.2 whda=406) EGFR (BEAKER) (test 134 mL/min/1.73 sq m ESTIMATED GFR IS NOT jihw=6340) ACCURATE CREATININE CLEARANCE IN PREDICTING GLOMERULAR FILTRATION RATE. ESTIMATED GFR IS NOT APPLICABLE FOR DIALYSIS PATIENTS. CBC (HEMOGRAM ONLY)2017-08-18 08:27:00 Test Item Value Reference Range Comments WHITE BLOOD CELL COUNT (BEAKER) (test kceo=843) 17.2 K/ L 3.5-10.5 RED BLOOD CELL COUNT (BEAKER) (test thso=344) 2.61 M/ L 4.63-6.08 HEMOGLOBIN (BEAKER) (test aosv=140) 7.3 GM/DL 13.7-17.5 HEMATOCRIT (BEAKER) (test zuxb=527) 23.3 % 40.1-51.0 MEAN CORPUSCULAR VOLUME (BEAKER) (test qvao=374) 89.3 fL 79.0-92.2 MEAN CORPUSCULAR HEMOGLOBIN (BEAKER) (test 28.0 pg 25.7-32.2 obuh=464) MEAN CORPUSCULAR HEMOGLOBIN CONC (BEAKER) (test 31.3 GM/DL 32.3-36.5 uvuy=787) RED CELL DISTRIBUTION WIDTH (BEAKER) (test 14.9 % 11.6-14.4 kzbx=269) PLATELET COUNT (BEAKER) (test rxac=655) 309 K/CU MM 150-450 MEAN PLATELET VOLUME (BEAKER) (test mrwd=672) 10.1 fL 9.4-12.4 NUCLEATED RED BLOOD CELLS (BEAKER) (test 0 /100 WBC 0-0 yxxc=347) [id number] 06:51:00 Test Item Value Reference Range Comments PHOSPHORUS (BEAKER) (test kjae=940) 3.1 mg/dL 2.3-4.7 [id number] 06:51:00 Test Item Value Reference Range Comments MAGNESIUM (BEAKER) (test xucq=202) 1.8 mg/dL 1.6-2.6 BASIC METABOLIC [id number] 06:51:00 Test Item Value Reference Range Comments SODIUM (BEAKER) (test 137 meq/L 136-145 agcu=825) POTASSIUM (BEAKER) (test 4.3 meq/L 3.5-5.1 hhua=279) CHLORIDE (BEAKER) (test 106 meq/L 98-107 mwnk=986) CO2 (BEAKER) (test 27 meq/L 22-29 ufhm=186) BLOOD UREA NITROGEN 10 mg/dL 7-21 (BEAKER) (test aodv=988) CREATININE (BEAKER) (test 0.74 mg/dL 0.57-1.25 wncs=084) GLUCOSE RANDOM (BEAKER) 94 mg/dL 70-105 (test tlom=562) CALCIUM (BEAKER) (test 8.4 mg/dL 8.4-10.2 gsvi=290) EGFR (BEAKER) (test 130 mL/min/1.73 sq m ESTIMATED GFR IS NOT vaco=1721) ACCURATE CREATININE CLEARANCE IN PREDICTING GLOMERULAR FILTRATION RATE. ESTIMATED GFR IS NOT APPLICABLE FOR DIALYSIS PATIENTS. CBC (HEMOGRAM ONLY)2017-08-17 06:14:00 Test Item Value Reference Range Comments WHITE BLOOD CELL COUNT (BEAKER) (test whil=678) 21.3 K/ L 3.5-10.5 RED BLOOD CELL COUNT (BEAKER) (test whtk=100) 2.89 M/ L 4.63-6.08 HEMOGLOBIN (BEAKER) (test dvci=829) 8.3 GM/DL 13.7-17.5 HEMATOCRIT (BEAKER) (test jqcr=486) 25.3 % 40.1-51.0 MEAN CORPUSCULAR VOLUME (BEAKER) (test mxba=326) 87.5 fL 79.0-92.2 MEAN CORPUSCULAR HEMOGLOBIN (BEAKER) (test 28.7 pg 25.7-32.2 dzkk=781) MEAN CORPUSCULAR HEMOGLOBIN CONC (BEAKER) (test 32.8 GM/DL 32.3-36.5 inqw=853) RED CELL DISTRIBUTION WIDTH (BEAKER) (test 14.9 % 11.6-14.4 vequ=543) PLATELET COUNT (BEAKER) (test hzjx=783) 327 K/CU MM 150-450 MEAN PLATELET VOLUME (BEAKER) (test qdmb=361) 10.4 fL 9.4-12.4 NUCLEATED RED BLOOD CELLS (BEAKER) (test 0 /100 WBC 0-0 nsfw=457) VANCOMYCIN LEVEL, [id number] 18:20:00 Test Item Value Reference Range Comments VANCOMYCIN TROUGH (BEAKER) (test tzif=248) 15.7 ug/mL 10.0-20.0 POCT-GLUCOSE [id number] 09:06:00 Test Item Value Reference Range Comments POC-GLUCOSE METER (BEAKER) 85 mg/dL 70-110 TESTED AT [facility] [address] (test xilw=5601) [facility] [address] [id number] 06:31:00 Test Item Value Reference Range Comments PHOSPHORUS (BEAKER) (test zpcb=425) 3.7 mg/dL 2.3-4.7 [id number] 06:31:00 Test Item Value Reference Range Comments MAGNESIUM (BEAKER) (test bxac=422) 1.8 mg/dL 1.6-2.6 BASIC METABOLIC [id number] 06:31:00 Test Item Value Reference Range Comments SODIUM (BEAKER) (test 137 meq/L 136-145 blta=933) POTASSIUM (BEAKER) (test 4.4 meq/L 3.5-5.1 slrk=817) CHLORIDE (BEAKER) (test 108 meq/L 98-107 xpmg=417) CO2 (BEAKER) (test 23 meq/L 22-29 dphf=112) BLOOD UREA NITROGEN 12 mg/dL 7-21 (BEAKER) (test vnbf=279) CREATININE (BEAKER) (test 0.75 mg/dL 0.57-1.25 kiyb=742) GLUCOSE RANDOM (BEAKER) 83 mg/dL 70-105 (test enoo=419) CALCIUM (BEAKER) (test 8.4 mg/dL 8.4-10.2 ekkl=352) EGFR (BEAKER) (test 128 mL/min/1.73 sq m ESTIMATED GFR IS NOT rkhx=3728) ACCURATE CREATININE CLEARANCE IN PREDICTING GLOMERULAR FILTRATION RATE. ESTIMATED GFR IS NOT APPLICABLE FOR DIALYSIS PATIENTS. CBC (HEMOGRAM ONLY)2017-08-16 06:07:00 Test Item Value Reference Range Comments WHITE BLOOD CELL COUNT (BEAKER) (test rsyi=937) 22.9 K/ L 3.5-10.5 RED BLOOD CELL COUNT (BEAKER) (test abhb=884) 3.01 M/ L 4.63-6.08 HEMOGLOBIN (BEAKER) (test hyks=569) 8.7 GM/DL 13.7-17.5 HEMATOCRIT (BEAKER) (test whol=748) 26.0 % 40.1-51.0 MEAN CORPUSCULAR VOLUME (BEAKER) (test ouii=592) 86.4 fL 79.0-92.2 MEAN CORPUSCULAR HEMOGLOBIN (BEAKER) (test 28.9 pg 25.7-32.2 aigj=736) MEAN CORPUSCULAR HEMOGLOBIN CONC (BEAKER) (test 33.5 GM/DL 32.3-36.5 qorv=731) RED CELL DISTRIBUTION WIDTH (BEAKER) (test 14.8 % 11.6-14.4 kjqu=412) PLATELET COUNT (BEAKER) (test eamv=246) 275 K/CU MM 150-450 MEAN PLATELET VOLUME (BEAKER) (test fulj=115) 10.4 fL 9.4-12.4 NUCLEATED RED BLOOD CELLS (BEAKER) (test 0 /100 WBC 0-0 prgb=778) POCT-GLUCOSE [id number] 21:20:00 Test Item Value Reference Range Comments POC-GLUCOSE METER (BEAKER) 82 mg/dL 70-110 TESTED AT [address] (test bczt=3995) [place] [address] POCT-GLUCOSE [id number] 16:31:00 Test Item Value Reference Range Comments POC-GLUCOSE METER (BEAKER) 97 mg/dL 70-110 TESTED AT [address] (test puqt=7609) [place] [address] HEMOGLOBIN AND [id number] 14:16:00 Test Item Value Reference Range Comments HEMOGLOBIN (BEAKER) (test awrw=424) 9.5 GM/DL 13.7-17.5 HEMATOCRIT (BEAKER) (test jxff=166) 29.1 % 40.1-51.0 POCT-GLUCOSE [id number] 11:40:00 Test Item Value Reference Range Comments POC-GLUCOSE METER (BEAKER) 133 mg/dL 70-110 TESTED AT [address] (test gesq=6010) [place] [address] URINE [id number] 08:34:00 Test Item Value Reference Range Comments CULTURE (BEAKER) (test qmof=6434) No growth POCT-GLUCOSE [id number] 08:26:00 Test Item Value Reference Range Comments POC-GLUCOSE METER (BEAKER) 86 mg/dL 70-110 TESTED AT [address] (test szol=7232) [place] [address] [id number] 05:52:00 Test Item Value Reference Range Comments PHOSPHORUS (BEAKER) (test ufwc=656) 3.0 mg/dL 2.3-4.7 [id number] 05:52:00 Test Item Value Reference Range Comments MAGNESIUM (BEAKER) (test xmwq=177) 1.9 mg/dL 1.6-2.6 BASIC METABOLIC [id number] 05:52:00 Test Item Value Reference Range Comments SODIUM (BEAKER) (test 137 meq/L 136-145 vfnp=020) POTASSIUM (BEAKER) (test 4.1 meq/L 3.5-5.1 nglu=813) CHLORIDE (BEAKER) (test 107 meq/L 98-107 ybvz=651) CO2 (BEAKER) (test 25 meq/L 22-29 fhyf=375) BLOOD UREA NITROGEN 16 mg/dL 7-21 (BEAKER) (test wyhu=210) CREATININE (BEAKER) (test 0.74 mg/dL 0.57-1.25 ybtp=497) GLUCOSE RANDOM (BEAKER) 89 mg/dL 70-105 (test chhh=848) CALCIUM (BEAKER) (test 8.2 mg/dL 8.4-10.2 nqjv=290) EGFR (BEAKER) (test 130 mL/min/1.73 sq m ESTIMATED GFR IS NOT bxpw=0411) ACCURATE CREATININE CLEARANCE IN PREDICTING GLOMERULAR FILTRATION RATE. ESTIMATED GFR IS NOT APPLICABLE FOR DIALYSIS PATIENTS. LACTIC ACID, VENOUS, WHOLE [id number] 05:35:00 Test Item Value Reference Range Comments LACTATE BLOOD VENOUS (2) 1.2 mmol/L 0.5-2.2 Specimen slightly hemolyzed (BEAKER) (test yuvy=7659) Effective 07/22/2015: Units/Reference Range ChangeNew: 0.5-2.2 mmol/L Previous: 5 -20 mg/dLCBC (HEMOGRAM ONLY)2017-08-15 05:27:00 Test Item Value Reference Range Comments WHITE BLOOD CELL COUNT (BEAKER) (test dogu=551) 32.2 K/ L 3.5-10.5 RED BLOOD CELL COUNT (BEAKER) (test bkhu=053) 3.04 M/ L 4.63-6.08 HEMOGLOBIN (BEAKER) (test vhrh=614) 8.6 GM/DL 13.7-17.5 HEMATOCRIT (BEAKER) (test zble=272) 26.4 % 40.1-51.0 MEAN CORPUSCULAR VOLUME (BEAKER) (test runj=428) 86.8 fL 79.0-92.2 MEAN CORPUSCULAR HEMOGLOBIN (BEAKER) (test 28.3 pg 25.7-32.2 vrld=545) MEAN CORPUSCULAR HEMOGLOBIN CONC (BEAKER) (test 32.6 GM/DL 32.3-36.5 erks=624) RED CELL DISTRIBUTION WIDTH (BEAKER) (test 15.0 % 11.6-14.4 hpfz=637) PLATELET COUNT (BEAKER) (test qtgh=536) 208 K/CU MM 150-450 MEAN PLATELET VOLUME (BEAKER) (test bamq=537) 11.2 fL 9.4-12.4 NUCLEATED RED BLOOD CELLS (BEAKER) (test 0 /100 WBC 0-0 rasa=326) POCT-GLUCOSE [id number] 21:55:00 Test Item Value Reference Range Comments POC-GLUCOSE METER (BEAKER) 121 mg/dL 70-110 TESTED AT [address] (test dovn=7865) [place] [address] POCT-GLUCOSE [id number] 18:21:00 Test Item Value Reference Range Comments POC-GLUCOSE METER (BEAKER) 125 mg/dL 70-110 TESTED AT [address] (test nheg=0441) [place] [address] VANCOMYCIN LEVEL, [id number] 15:38:00 Test Item Value Reference Range Comments VANCOMYCIN TROUGH (BEAKER) (test eovl=888) 11.2 ug/mL 10.0-20.0 POCT-GLUCOSE [id number] 12:14:00 Test Item Value Reference Range Comments POC-GLUCOSE METER (BEAKER) 167 mg/dL 70-110 TESTED AT [address] (test ftxn=4960) [place] [address] SURGICALLY OBTAINED CULTURE + GRAM [id number] 08:32:00 Test Item Value Reference Range Comments CULTURE (BEAKER) (test yemp=7996) No growth GRAM STAIN RESULT (BEAKER) (test 1+ WBCs nvzd=1514) GRAM STAIN RESULT (BEAKER) (test No organisms seen iijt=16974) POCT-GLUCOSE [id number] 08:06:00 Test Item Value Reference Range Comments POC-GLUCOSE METER (BEAKER) 113 mg/dL 70-110 TESTED AT [address] (test evsy=0943) [place] [address] [id number] 05:00:00 Test Item Value Reference Range Comments MAGNESIUM (BEAKER) (test 2.1 mg/dL 1.6-2.6 Specimen slightly hemolyzed wnxd=378) [id number] 05:00:00 Test Item Value Reference Range Comments PHOSPHORUS (BEAKER) (test 3.9 mg/dL 2.3-4.7 Specimen slightly hemolyzed spyl=667) BASIC METABOLIC [id number] 05:00:00 Test Item Value Reference Range Comments SODIUM (BEAKER) (test 137 meq/L 136-145 ijbo=018) POTASSIUM (BEAKER) (test 4.9 meq/L 3.5-5.1 Specimen slightly bqkk=894) hemolyzed CHLORIDE (BEAKER) (test 109 meq/L 98-107 ajcd=198) CO2 (BEAKER) (test 21 meq/L 22-29 gqop=784) BLOOD UREA NITROGEN 13 mg/dL 7-21 (BEAKER) (test rodn=918) CREATININE (BEAKER) (test 0.72 mg/dL 0.57-1.25 Specimen slightly lxns=174) hemolyzed GLUCOSE RANDOM (BEAKER) 142 mg/dL 70-105 (test zkaw=520) CALCIUM (BEAKER) (test 8.5 mg/dL 8.4-10.2 hvgw=673) EGFR (BEAKER) (test 134 mL/min/1.73 sq m ESTIMATED GFR IS NOT djrj=2543) ACCURATE CREATININE CLEARANCE IN PREDICTING GLOMERULAR FILTRATION RATE. ESTIMATED GFR IS NOT APPLICABLE FOR DIALYSIS PATIENTS. LACTIC ACID, VENOUS, WHOLE [id number] 04:58:00 Test Item Value Reference Range Comments LACTATE BLOOD VENOUS (2) (BEAKER) (test 1.7 mmol/L 0.5-2.2 aifv=5363) Effective 07/22/2015: Units/Reference Range ChangeNew: 0.5-2.2 mmol/L Previous: 5 -20 mg/dLCBC (HEMOGRAM ONLY)2017-08-14 04:51:00 Test Item Value Reference Range Comments WHITE BLOOD CELL COUNT (BEAKER) (test lzyj=149) 42.8 K/ L 3.5-10.5 RED BLOOD CELL COUNT (BEAKER) (test guna=781) 3.58 M/ L 4.63-6.08 HEMOGLOBIN (BEAKER) (test brwq=368) 10.2 GM/DL 13.7-17.5 HEMATOCRIT (BEAKER) (test igsh=454) 31.0 % 40.1-51.0 MEAN CORPUSCULAR VOLUME (BEAKER) (test casr=633) 86.6 fL 79.0-92.2 MEAN CORPUSCULAR HEMOGLOBIN (BEAKER) (test 28.5 pg 25.7-32.2 hkhf=161) MEAN CORPUSCULAR HEMOGLOBIN CONC (BEAKER) (test 32.9 GM/DL 32.3-36.5 azrk=920) RED CELL DISTRIBUTION WIDTH (BEAKER) (test 14.8 % 11.6-14.4 cmcb=239) PLATELET COUNT (BEAKER) (test mkeo=664) 182 K/CU MM 150-450 MEAN PLATELET VOLUME (BEAKER) (test bqdb=649) 11.3 fL 9.4-12.4 NUCLEATED RED BLOOD CELLS (BEAKER) (test 0 /100 WBC 0-0 vtly=583) SPIN/CONCENTRATION [id number] 01:45:00 Test Item Value Reference Range Comments CONCENTRATION CHARGED (BEAKER) (test amgc=1191) Done POCT-GLUCOSE [id number] 21:55:00 Test Item Value Reference Range Comments POC-GLUCOSE METER (BEAKER) 177 mg/dL 70-110 TESTED AT [address] (test xfmd=0593) [facility] [address] LACTIC ACID, VENOUS, WHOLE [id number] 19:33:00 Test Item Value Reference Range Comments LACTATE BLOOD VENOUS (2) 1.4 mmol/L 0.5-2.2 Specimen slightly hemolyzed (BEAKER) (test ephg=9834) Effective 07/22/2015: Units/Reference Range ChangeNew: 0.5-2.2 mmol/L Previous: 5 -20 mg/dLHEMOGLOBIN AND [id number] 19:17:00 Test Item Value Reference Range Comments HEMOGLOBIN (BEAKER) (test xtmh=534) 10.6 GM/DL 13.7-17.5 HEMATOCRIT (BEAKER) (test lqkr=151) 31.6 % 40.1-51.0 POCT-GLUCOSE [id number] 18:48:00 Test Item Value Reference Range Comments POC-GLUCOSE METER (BEAKER) 133 mg/dL 70-110 [address]test cqnb=1554) [facility] [address] CT, PELVIS, W [id number] 17:27:00Please scan to kneesFINAL REPORT DOSE REDUCTION: The examination was performed [...] onto the subcutis tissues of the mons. Asmall fluid and gas collection also tracks along [...] seen. There is soft tissue anasarca. Fluid inthe scrotal sac identified. Vascular calcifications are seen. There is colonic diverticulosis. No findings of diverticulitis. Of note, bowel is incompletely assessed as an abdomen CT is not performed. A cyst is partially depicted in the right lower abdomen. The portion imaged measures 5.5 cm. No acuteskeletal abnormality. IMPRESSION: 1. Small amounts of fluid and gas surrounding the penile shaft, extending posteriorly and cephalad to the level of the bulbar urethra, and towards the right and anteriorly to the subcutaneous tissues of the mons. Infection/abscess cannot excluded. Correlation with history recommended. 2. Small amount of presacral edema and stranding. No fluid collections elsewhere inthe pelvis. Soft tissue anasarca. Signed: Beau Julio MDReport Verified Date/ Time: 08/13/2017 17:27:43 Reading Location: [address] Reading Room POCT-LACTIC ACID, [id number] 14:30:00 Test Item Value Reference Range Comments POC-LACTIC ACID, ARTERIAL 1.1 mmol/L 0.4-1.3 TESTED AT [address] (BEAKER) (test bhgz=1726) [place] [address] HEPATITIS PANEL, [id number] 13:32:00 Test Item Value Reference Range Comments HEPATITIS A IGM ANTIBODY (BEAKER) (test Nonreactive Nonreactive ymwy=388) HEPATITIS B CORE IGM ANTIBODY (BEAKER) (test Nonreactive Nonreactive lpfa=692) HEPATITIS C ANTIBODY (BEAKER) (test dtfo=046) Nonreactive Nonreactive HEPATITIS B SURFACE ANTIGEN (2) (BEAKER) (test Nonreactive Nonreactive vpej=8624) POCT-GLUCOSE [id number] 13:22:00 Test Item Value Reference Range Comments POC-GLUCOSE METER (BEAKER) 123 mg/dL 70-110 TESTED AT [address] (test fdik=8959) [place] [id number] URINALYSIS W/ [id number] 12:49:00 Test Item Value Reference Range Comments COLOR (BEAKER) (test aqsf=639) Yellow CLARITY (BEAKER) (test cgcw=214) Clear SPECIFIC GRAVITY UA (BEAKER) (test npwu=265) 1.020 1.001-1.035 PH UA (BEAKER) (test bjof=794) 5.5 5.0-8.0 PROTEIN UA (BEAKER) (test zogw=252) 30 mg/dL Negative GLUCOSE UA (BEAKER) (test qjlz=437) Negative Negative KETONES UA (BEAKER) (test ryql=326) Negative Negative BILIRUBIN UA (BEAKER) (test zmyc=423) Negative Negative BLOOD UA (BEAKER) (test arri=020) Small Negative NITRITE UA (BEAKER) (test zuub=072) Negative Negative LEUKOCYTE ESTERASE UA (BEAKER) (test fpgy=868) Negative Negative UROBILINOGEN UA (BEAKER) (test gccn=014) 3.0 mg/dL 0.2-1.0 RBC UA (BEAKER) (test yatf=952) 3 /HPF WBC UA (BEAKER) (test erts=553) 2 /HPF MUCUS (BEAKER) (test kzli=2074) Rare HYALINE CASTS (BEAKER) (test gxun=146) 2 /LPF SOURCE(BEAKER) (test vcob=1630) Urine, [place] HIV-1 ANTIGEN WITH HIV-1/2 [id number] 12:48:00 Test Item Value Reference Range Comments HIV-1 ANTIGEN WITH HIV 1\T\2 ANTIBODY (2) Nonreactive Nonreactive (BEAKER) (test txzv=7275) LACTIC ACID, VENOUS, WHOLE [id number] 12:46:00 Test Item Value Reference Range Comments LACTATE BLOOD VENOUS (2) (BEAKER) (test 2.6 mmol/L 0.5-2.2 dyrc=5203) Effective 07/22/2015: Units/Reference Range ChangeNew: 0.5-2.2 mmol/L Previous: 5 -20 mg/dLHEPATIC FUNCTION [id number] 12:27:00 Test Item Value Reference Range Comments TOTAL PROTEIN (BEAKER) (test iulw=769) 6.6 gm/dL 6.0-8.3 ALBUMIN (BEAKER) (test mlho=1145) 2.6 g/dL 3.5-5.0 BILIRUBIN TOTAL (BEAKER) (test sbvk=830) 1.4 mg/dL 0.2-1.2 BILIRUBIN DIRECT (BEAKER) (test vxmb=285) 0.8 mg/dL 0.1-0.5 ALKALINE PHOSPHATASE (BEAKER) (test qamo=130) 138 U/L 40-150 AST (SGOT) (BEAKER) (test cyjm=031) 35 U/L 5-34 ALT (SGPT) (BEAKER) (test lxat=985) 36 U/L 6-55 POCT-GLUCOSE [id number] 08:31:00 Test Item Value Reference Range Comments POC-GLUCOSE METER (BEAKER) 119 mg/dL 70-110 TESTED AT [facility] [address] [facility] (test bdve=1462) [facility] [address] [id number] 05:54:00 Test Item Value Reference Range Comments PHOSPHORUS (BEAKER) (test twac=864) 2.9 mg/dL 2.3-4.7 [id number] 05:54:00 Test Item Value Reference Range Comments MAGNESIUM (BEAKER) (test gusy=843) 1.6 mg/dL 1.6-2.6 BASIC METABOLIC [id number] 05:54:00 Test Item Value Reference Range Comments SODIUM (BEAKER) (test 135 meq/L 136-145 lkdc=532) POTASSIUM (BEAKER) (test 4.1 meq/L 3.5-5.1 jajy=917) CHLORIDE (BEAKER) (test 105 meq/L 98-107 hvdz=113) CO2 (BEAKER) (test 24 meq/L 22-29 cedz=258) BLOOD UREA NITROGEN 14 mg/dL 7-21 (BEAKER) (test xvfj=627) CREATININE (BEAKER) (test 0.80 mg/dL 0.57-1.25 exzn=654) GLUCOSE RANDOM (BEAKER) 113 mg/dL 70-105 (test ceho=984) CALCIUM (BEAKER) (test 8.5 mg/dL 8.4-10.2 ijao=692) EGFR (BEAKER) (test 119 mL/min/1.73 sq m ESTIMATED GFR IS NOT qhol=1510) ACCURATE CREATININE CLEARANCE IN PREDICTING GLOMERULAR FILTRATION RATE. ESTIMATED GFR IS NOT APPLICABLE FOR DIALYSIS PATIENTS. CBC (HEMOGRAM ONLY)2017-08-13 05:21:00 Test Item Value Reference Range Comments WHITE BLOOD CELL COUNT (BEAKER) (test vymy=327) 43.7 K/ L 3.5-10.5 RED BLOOD CELL COUNT (BEAKER) (test izzn=361) 4.00 M/ L 4.63-6.08 HEMOGLOBIN (BEAKER) (test nmnx=106) 11.3 GM/DL 13.7-17.5 HEMATOCRIT (BEAKER) (test firm=536) 34.0 % 40.1-51.0 MEAN CORPUSCULAR VOLUME (BEAKER) (test otxs=696) 85.0 fL 79.0-92.2 MEAN CORPUSCULAR HEMOGLOBIN (BEAKER) (test 28.3 pg 25.7-32.2 ootn=144) MEAN CORPUSCULAR HEMOGLOBIN CONC (BEAKER) (test 33.2 GM/DL 32.3-36.5 pqof=819) RED CELL DISTRIBUTION WIDTH (BEAKER) (test 14.5 % 11.6-14.4 iajk=966) PLATELET COUNT (BEAKER) (test mcot=516) 146 K/CU MM 150-450 MEAN PLATELET VOLUME (BEAKER) (test hlvx=583) 11.2 fL 9.4-12.4 NUCLEATED RED BLOOD CELLS (AKER) (test 0 /100 WBC 0-0 jkea=308) POCT-GLUCOSE [id number] 23:29:00 Test Item Value Reference Range Comments POC-GLUCOSE METER (BEAKER) 152 mg/dL 70-110 TESTED AT [address] (test nhuu=6359) [place] [address] POCT-GLUCOSE [id number] 18:15:00 Test Item Value Reference Range Comments POC-GLUCOSE METER (BEAKER) 142 mg/dL 70-110 TESTED AT [address] (test saow=3695) [place] [address] POCT-LACTIC ACID, [id number] 17:13:00 Test Item Value Reference Range Comments POC-LACTIC ACID, ARTERIAL 1.2 mmol/L 0.4-1.3 TESTED AT [address] ([employer] [facility] [employer] [facility] [employer] [facility] [facility]) (test ijyk=9917) [place] [address] RAD, CHEST, 1 VIEW, NON [id number] 16:59:00Reason for exam:->chest painShould this be performed at the bedside?->YesFINAL REPORT TECHNIQUE: Single view of the chest. COMPARISON: None FINDINGS:The cardiac silhouette is within normal limits. Mediastinum is unremarkable. Lungs are clear. No acute skeletal abnormality. Soft tissues appear unremarkable. IMPRESSION: No acute cardiopulmonarydisease. Signed: Beau Julio MDReport Verified Date/Time: 08/12/2017 16:59:38 Reading Location: [address] Reading Room VANCOMYCIN LEVEL, [id number] 14:35:00 Test Item Value Reference Range Comments VANCOMYCIN TROUGH (BEAKER) (test mioy=400) 8.6 ug/mL 10.0-20.0 Before fourth dose of vancomycinPOCT-GLUCOSE [id number] 14:20:00 Test Item Value Reference Range Comments [facility] 116 mg/dL 70-110 TESTED AT [address] (test qfgs=4986) [place] [address] POCT-GLUCOSE [id number] 08:42:00 Test Item Value Reference Range Comments POC-GLUCOSE METER (BEAKER) 134 mg/dL 70-110 TESTED AT [facility] [address] [facility] (test vwzh=6340) [facility] [address] [id number] 07:59:00 Test Item Value Reference Range Comments PHOSPHORUS (BEAKER) (test pbwy=099) 3.0 mg/dL 2.3-4.7 [id number] 07:59:00 Test Item Value Reference Range Comments MAGNESIUM (BEAKER) (test iltm=135) 1.7 mg/dL 1.6-2.6 BASIC METABOLIC [id number] 07:59:00 Test Item Value Reference Range Comments SODIUM (BEAKER) (test 135 meq/L 136-145 xzbr=136) POTASSIUM (BEAKER) (test 4.3 meq/L 3.5-5.1 qpql=341) CHLORIDE (BEAKER) (test 103 meq/L 98-107 wddy=924) CO2 (BEAKER) (test 23 meq/L 22-29 pigl=167) BLOOD UREA NITROGEN 18 mg/dL 7-21 (BEAKER) (test bmwc=140) CREATININE (BEAKER) (test 0.83 mg/dL 0.57-1.25 xbbo=919) GLUCOSE RANDOM (BEAKER) 108 mg/dL 70-105 (test mcjv=758) CALCIUM (BEAKER) (test 8.6 mg/dL 8.4-10.2 tmof=703) EGFR (BEAKER) (test 114 mL/min/1.73 sq m ESTIMATED GFR IS NOT fdod=8845) ACCURATE CREATININE CLEARANCE IN PREDICTING GLOMERULAR FILTRATION RATE. ESTIMATED GFR IS NOT APPLICABLE FOR DIALYSIS PATIENTS. CBC (HEMOGRAM ONLY)2017-08-12 07:35:00 Test Item Value Reference Range Comments WHITE BLOOD CELL COUNT (BEAKER) (test wffi=651) 30.6 K/ L 3.5-10.5 RED BLOOD CELL COUNT (BEAKER) (test xwvu=652) 4.27 M/ L 4.63-6.08 HEMOGLOBIN (BEAKER) (test sxyw=066) 12.0 GM/DL 13.7-17.5 HEMATOCRIT (BEAKER) (test vryi=251) 36.9 % 40.1-51.0 MEAN CORPUSCULAR VOLUME (BEAKER) (test hdla=477) 86.4 fL 79.0-92.2 MEAN CORPUSCULAR HEMOGLOBIN (BEAKER) (test 28.1 pg 25.7-32.2 ycca=742) MEAN CORPUSCULAR HEMOGLOBIN CONC (BEAKER) (test 32.5 GM/DL 32.3-36.5 kmhj=864) RED CELL DISTRIBUTION WIDTH (BEAKER) (test 14.9 % 11.6-14.4 sppd=178) PLATELET COUNT (BEAKER) (test xdbb=731) 112 K/CU MM 150-450 MEAN PLATELET VOLUME (BEAKER) (test fzox=798) 11.7 fL 9.4-12.4 NUCLEATED RED BLOOD CELLS (BEAKER) (test 0 /100 WBC 0-0 wwbb=994) POCT-GLUCOSE [id number] 18:57:00 Test Item Value Reference Range Comments POC-GLUCOSE METER (BEAKER) 118 mg/dL 70-110 TESTED AT [address] (test hovy=0195) [place] [id number] POCT-GLUCOSE [id number] 11:29:00 Test Item Value Reference Range Comments POC-GLUCOSE METER (BEAKER) 172 mg/dL 70-110 TESTED AT [address] (test dwzp=1250) [place] [id number] POCT-GLUCOSE [id number] 06:57:00 Test Item Value Reference Range Comments POC-GLUCOSE METER (BEAKER) 141 mg/dL 70-110 TESTED AT [address] (test fjyq=0097) [place] [address] VANCOMYCIN LEVEL, [id number] 05:38:00 Test Item Value Reference Range Comments VANCOMYCIN RANDOM (BEAKER) (test czzk=428) 8.7 ug/mL Reference Range: No [id number] 05:37:00 Test Item Value Reference Range Comments PHOSPHORUS (BEAKER) (test iwlu=470) 4.3 mg/dL 2.3-4.7 [id number] 05:37:00 Test Item Value Reference Range Comments MAGNESIUM (BEAKER) (test qdla=799) 2.4 mg/dL 1.6-2.6 BASIC METABOLIC [id number] 05:37:00 Test Item Value Reference Range Comments SODIUM (BEAKER) (test 138 meq/L 136-145 rbhk=752) POTASSIUM (BEAKER) (test 4.9 meq/L 3.5-5.1 mqsk=124) CHLORIDE (BEAKER) (test 109 meq/L 98-107 vqmo=328) CO2 (BEAKER) (test 20 meq/L 22-29 wfbh=978) BLOOD UREA NITROGEN 16 mg/dL 7-21 (BEAKER) (test viav=252) CREATININE (BEAKER) (test 0.81 mg/dL 0.57-1.25 yfdu=224) GLUCOSE RANDOM (BEAKER) 134 mg/dL 70-105 (test hlxo=208) CALCIUM (BEAKER) (test 8.8 mg/dL 8.4-10.2 amfq=729) EGFR (BEAKER) (test 117 mL/min/1.73 sq m ESTIMATED GFR IS NOT fukt=9819) ACCURATE CREATININE CLEARANCE IN PREDICTING GLOMERULAR FILTRATION RATE. ESTIMATED GFR IS NOT APPLICABLE FOR DIALYSIS PATIENTS. CBC (HEMOGRAM ONLY)2017-08-11 04:59:00 Test Item Value Reference Range Comments WHITE BLOOD CELL COUNT (BEAKER) (test uvbg=880) 36.2 K/ L 3.5-10.5 RED BLOOD CELL COUNT (BEAKER) (test zsfq=310) 4.55 M/ L 4.63-6.08 HEMOGLOBIN (BEAKER) (test tglx=777) 12.7 GM/DL 13.7-17.5 HEMATOCRIT (BEAKER) (test rmgy=679) 39.5 % 40.1-51.0 MEAN CORPUSCULAR VOLUME (BEAKER) (test cqnr=580) 86.8 fL 79.0-92.2 MEAN CORPUSCULAR HEMOGLOBIN (BEAKER) (test 27.9 pg 25.7-32.2 zsjs=981) MEAN CORPUSCULAR HEMOGLOBIN CONC (BEAKER) (test 32.2 GM/DL 32.3-36.5 hyfn=088) RED CELL DISTRIBUTION WIDTH (BEAKER) (test 14.9 % 11.6-14.4 pjtk=220) PLATELET COUNT (BEAKER) (test hwme=901) 104 K/CU MM 150-450 MEAN PLATELET VOLUME (BEAKER) (test fnqr=444) 11.3 fL 9.4-12.4 NUCLEATED RED BLOOD CELLS (BEAKER) (test 0 /100 WBC 0-0 kcmx=558) POCT-GLUCOSE [id number] 00:39:00 Test Item Value Reference Range Comments POC-GLUCOSE METER (BEAKER) 118 mg/dL 70-110 TESTED AT [facility] [address] (test bowb=4335) [place] [address] [id number] 00:22:00 Test Item Value Reference Range Comments PHOSPHORUS (BEAKER) (test fsxf=553) 2.7 mg/dL 2.3-4.7 [id number] 00:22:00 Test Item Value Reference Range Comments MAGNESIUM (BEAKER) (test xkrk=213) 1.5 mg/dL 1.6-2.6 BASIC METABOLIC [id number] 00:22:00 Test Item Value Reference Range Comments SODIUM (BEAKER) (test 134 meq/L 136-145 akwh=422) POTASSIUM (BEAKER) (test 4.2 meq/L 3.5-5.1 viok=174) CHLORIDE (BEAKER) (test 107 meq/L 98-107 xsrz=533) CO2 (BEAKER) (test 19 meq/L 22-29 jpqe=191) BLOOD UREA NITROGEN 18 mg/dL 7-21 (BEAKER) (test fyfd=490) CREATININE (BEAKER) (test 0.86 mg/dL 0.57-1.25 bieb=163) GLUCOSE RANDOM (BEAKER) 127 mg/dL 70-105 (test tlkw=566) CALCIUM (BEAKER) (test 8.5 mg/dL 8.4-10.2 fbek=019) EGFR (BEAKER) (test 109 mL/min/1.73 sq m ESTIMATED GFR IS NOT dwcr=7809) ACCURATE CREATININE CLEARANCE IN PREDICTING GLOMERULAR FILTRATION RATE. ESTIMATED GFR IS NOT APPLICABLE FOR DIALYSIS PATIENTS. LACTIC ACID, VENOUS, WHOLE [id number] 23:34:00 Test Item Value Reference Range Comments LACTATE BLOOD VENOUS (2) (BEAKER) (test 1.2 mmol/L 0.5-2.2 sgdp=1764) Effective 07/22/2015: Units/Reference Range ChangeNew: 0.5-2.2 mmol/L Previous: 5 -20 mg/dLCALCIUM, [id number] 23:30:00 Test Item Value Reference Range Comments CALCIUM IONIZED (BEAKER) (test cmyt=862) 1.13 mmol/L 1.12-1.27 PH, BLOOD (BEAKER) (test cfje=9780) 7.37 CBC (HEMOGRAM ONLY)2017-08-10 23:26:00 Test Item Value Reference Range Comments WHITE BLOOD CELL COUNT (BEAKER) (test gibo=371) 23.4 K/ L 3.5-10.5 RED BLOOD CELL COUNT (BEAKER) (test dvru=024) 4.32 M/ L 4.63-6.08 HEMOGLOBIN (BEAKER) (test pagq=449) 12.0 GM/DL 13.7-17.5 HEMATOCRIT (BEAKER) (test swxs=212) 37.2 % 40.1-51.0 MEAN CORPUSCULAR VOLUME (BEAKER) (test qttv=151) 86.1 fL 79.0-92.2 MEAN CORPUSCULAR HEMOGLOBIN (BEAKER) (test 27.8 pg 25.7-32.2 qrsa=839) MEAN CORPUSCULAR HEMOGLOBIN CONC (BEAKER) (test 32.3 GM/DL 32.3-36.5 khgx=275) RED CELL DISTRIBUTION WIDTH (BEAKER) (test 14.7 % 11.6-14.4 rfaj=552) PLATELET COUNT (BEAKER) (test lukh=587) 105 K/CU MM 150-450 MEAN PLATELET VOLUME (BEAKER) (test duyg=064) 10.7 fL 9.4-12.4 NUCLEATED RED BLOOD CELLS (BEAKER) (test 0 /100 WBC 0-0 ksyk=332) [id number] 16:37:00 Test Item Value Reference Range Comments PARTIAL THROMBOPLASTIN TIME (BEAKER) (test 38.0 seconds 22.5-36.0 kyhe=130) PROTHROMBIN TIME/[id number] 16:36:00 Test Item Value Reference Range Comments PROTIME (BEAKER) (test nyap=870) 14.0 seconds 11.7-14.7 INR (BEAKER) (test bqlj=792) 1.1 <=5.9 RECOMMENDED COUMADIN/WARFARIN INR THERAPY RANGESSTANDARD DOSE: 2.0 - 3.0 Includes: PROPHYLAXIS forvenous thrombosis, systemic embolization; TREATMENT for venous thrombosis and/or pulmonary embolus.HIGH RISK: Target INR is 2.5-3.5 for patients with mechanical heart valves.[id number] 06:48:00 Test Item Value Reference Range Comments MAGNESIUM (BEAKER) (test trde=299) 2.0 mg/dL 1.6-2.6 BASIC METABOLIC [id number] 06:48:00 Test Item Value Reference Range Comments SODIUM (BEAKER) (test 138 meq/L 136-145 jpcs=605) POTASSIUM (BEAKER) (test 4.4 meq/L 3.5-5.1 ucgc=936) CHLORIDE (BEAKER) (test 111 meq/L 98-107 svkc=828) CO2 (BEAKER) (test 23 meq/L 22-29 dcak=097) BLOOD UREA NITROGEN 18 mg/dL 7-21 (BEAKER) (test copg=662) CREATININE (BEAKER) (test 0.83 mg/dL 0.57-1.25 wsgp=116) GLUCOSE RANDOM (BEAKER) 89 mg/dL 70-105 (test jlor=490) CALCIUM (BEAKER) (test 8.4 mg/dL 8.4-10.2 ltnp=230) EGFR (BEAKER) (test 114 mL/min/1.73 sq m ESTIMATED GFR IS NOT apxe=8891) ACCURATE CREATININE CLEARANCE IN PREDICTING GLOMERULAR FILTRATION RATE. ESTIMATED GFR IS NOT APPLICABLE FOR DIALYSIS PATIENTS. CBC (HEMOGRAM ONLY)2017-08-10 06:17:00 Test Item Value Reference Range Comments WHITE BLOOD CELL COUNT (BEAKER) (test mshg=354) 18.1 K/ L 3.5-10.5 RED BLOOD CELL COUNT (BEAKER) (test ryxs=981) 4.21 M/ L 4.63-6.08 HEMOGLOBIN (BEAKER) (test oljo=778) 11.8 GM/DL 13.7-17.5 HEMATOCRIT (BEAKER) (test pvfk=028) 36.7 % 40.1-51.0 MEAN CORPUSCULAR VOLUME (BEAKER) (test bqav=519) 87.2 fL 79.0-92.2 MEAN CORPUSCULAR HEMOGLOBIN (BEAKER) (test 28.0 pg 25.7-32.2 ovva=880) MEAN CORPUSCULAR HEMOGLOBIN CONC (BEAKER) (test 32.2 GM/DL 32.3-36.5 myjg=245) RED CELL DISTRIBUTION WIDTH (BEAKER) (test 14.7 % 11.6-14.4 vucp=460) PLATELET COUNT (BEAKER) (test qira=921) 111 K/CU MM 150-450 MEAN PLATELET VOLUME (BEAKER) (test pfxm=929) 10.6 fL 9.4-12.4 NUCLEATED RED BLOOD CELLS (BEAKER) (test 0 /100 WBC 0-0 kzol=796)
[2017-09-15 20:45] LABS: Urine Blood 3+ (NEG); Urine Glucose NEGATIVE (NEG); Urine Protein 2+ (NEG)
[2017-09-15 20:47] LABS: Urine Bacteria <20 /HPF (NONE SEEN); Urine Culture Reflex Order REFLEXED; Urine Mucus SLIGHT /HPF (NONE SEEN); Urine RBC 20-50 /HPF (NONE SEEN)
--- NOTE | 2017-09-15 21:21 | EDPHYS ---
Physician Documentation [facility] Name: Jorge Alfaro Age: 62 yrs Sex: Male : 1955 Arrival Date: 09/15/2017 Time: 18:24 Bed 14 Private MD: None, None ED Physician Angel Munoz HPI: 09/15 19:10 This 62 yrs old Black Male presents to ER via Ambulatory with complaints of Problem cp With Urinary Catheter. 19:10 The patient presents with a Steinberg catheter problem, is not draining. cp 19:10 Onset: The symptoms/episode began/occurred today. cp 19:10 Associated signs and symptoms: Pertinent positives: urinary urgency, Pertinent cp negatives: abdominal pain, constipation, diarrhea, dysuria, fever, vomiting. 19:10 Severity of symptoms: in the emergency department the symptoms are unchanged, despite cp home interventions. Historical: - Allergies: 18:31 No Known Allergies; sg - PMHx: 18:31 "clogged artery unknown"; Hypertension; sg - Immunization history:: Adult Immunizations up to date. - Social history:: Smoking status: Patient/guardian denies using tobacco. - Ebola Screening: : Patient negative for fever greater than or equal to 101.5 degrees Fahrenheit, and additional compatible Ebola Virus Disease symptoms Patient denies exposure to infectious person Patient denies travel to an Ebola-affected area in the 21 days before illness onset No symptoms or risks identified at this time. ROS: 19:15 Constitutional: Negative for body aches, chills, fever, poor PO intake. cp 19:15 Eyes: Negative for injury, pain, redness, and discharge. cp 19:15 Cardiovascular: Negative for chest pain, palpitations. 19:15 Respiratory: Negative for cough, shortness of breath, wheezing. 19:15 Abdomen/GI: Negative for abdominal pain, nausea, vomiting, and diarrhea, black/tarry stool, rectal bleeding. 19:15 : Positive for urinary frequency, Negative for flank pain, testicular pain 19:15 Skin: Negative for cellulitis, rash. 19:15 All other systems are negative. Exam: 19:22 Constitutional: The patient appears in no acute distress, alert, awake, non-toxic, well cp developed, well nourished. 19:22 Head/Face: Normocephalic, atraumatic. cp 19:22 Eyes: Periorbital structures: appear normal, Conjunctiva: normal, no exudate, no injection, Lids and lashes: appear normal, bilaterally. 19:22 ENT: External ear(s): are unremarkable, Nose: is normal, Mouth: is normal, Posterior pharynx: is normal, airway is patent. 19:22 Chest/axilla: Inspection: normal. 19:22 Cardiovascular: Rate: normal. 19:22 Respiratory: the patient does not display signs of respiratory distress, Respirations: normal, no use of accessory muscles, no retractions, no splinting, no tachypnea. 19:22 Abdomen/GI: Inspection: abdomen appears normal, Bowel sounds: active, all quadrants, Palpation: soft, in all quadrants, mild abdominal tenderness, in the suprapubic area, rebound tenderness, is not appreciated, voluntary guarding, is not appreciated, involuntary guarding, is not appreciated. 19:22 Skin: cellulitis, is not appreciated, no rash present. Vital Signs: 18:28 Pulse 75; Resp 17; Temp 98.8; Pulse Ox 98% on R/A; Weight 83.91 kg; Height 5 ft. 10 in. sg (177.80 cm); Pain 6/10; 18:31 BP 141 / 86; sg 19:00 BP 129 / 75; Pulse 64; Resp 16; Pulse Ox 98% ; bp 20:01 BP 134 / 82; Pulse 60; Resp 16; Pulse Ox 100% ; bp 21:02 BP 152 / 82; Pulse 63; Resp 16; Pulse Ox 100% ; bp 18:28 Body Mass Index 26.54 (83.91 kg, 177.80 cm) sg MDM: 18:43 Patient medically screened. cp 21:20 Data reviewed: vital signs, nurses notes, lab test result(s). cp 21:20 Counseling: I had a detailed discussion with the patient and/or guardian regarding: the cp historical points, exam findings, and any diagnostic results supporting the discharge/admit diagnosis, lab results, the need for outpatient follow up, a urologist, to return to the emergency department if symptoms worsen or persist or if there are any questions or concerns that arise at home. 09/15 19:41 Order name: Urine Microscopic Only; Complete Time: 20:48 cp 09/15 20:48 Interpretation: Normal except: UWBC 5-10; URBC 20-50. cp 09/15 20:33 Order name: Urine Dipstick--Ancillary (enter results); Complete Time: 20:48 09/15 20:48 Interpretation: Normal except: UBLD 3+; UPROT 2+; UESTR TRACE. 09/15 19:07 Order name: Misc. Order: steinberg irrigation; Complete Time: 20:00 09/15 19:41 Order name: Urine Dipstick-Ancillary (obtain specimen); Complete Time: 20:35 09/15 20:50 Order name: Urine Culture [facility] 09/15 19:41 Order name: Bladder Scanner; Complete Time: 20:00 Administered Medications: 21:34 Drug: Rocephin - (cefTRIAXone) 1 grams {Note: GIVEN IM PER PROVIDER, R BUTTOCK.} Route: bp IVPB; Infused Over: 30 mins; Site: Other; 21:34 Follow up: IV Status: Completed infusion bp Disposition: 09/16 07:01 Co-signature as Attending Physician, Angel Munoz MD. rn Disposition: 09/15/17 21:21 Discharged to Home. Impression: Unspecified symptoms and signs involving the genitourinary system - Urinary Urgency. - Condition is Stable. - Discharge Instructions: Steinberg Catheter Care, Adult. - Prescriptions for Cipro 500 mg Oral Tablet - take 1 tablet by ORAL route every 12 hours for 7 days; 14 tablet. - Medication Reconciliation Form, Thank You Letter, Antibiotic Education, Prescription Opioid Use form. - Follow up: Subha Alas MD; When: 2 - 3 days; Reason: Recheck today's complaints. - Problem is new. - Symptoms have improved. Signatures: Dispatcher [employer] [facility] Aniket Guerrier, RN GUY Angel Munoz MD MD rn Page, Corey, PA PA cp Peltier, Brian, RN RN bp Corrections: (The following items were deleted from the chart) 09/15 21:35 21:21 09/15/2017 21:21 Discharged to Home. Impression: Unspecified symptoms and signs bp involving the genitourinary system - Urinary Urgency. Condition is Stable. Forms are Medication Reconciliation Form, Thank You Letter, Antibiotic Education, Prescription Opioid Use. Follow up: Subha Alas; When: 2 - 3 days; Reason: Recheck today's complaints. Problem is new. Symptoms have improved. 09/16 06:09/15 16:22 Constitutional: The patient appears in no acute distress, alert, awake, cp non-toxic, well developed, well nourished, cp 09/16 06:09/15 16:22 Head/Face: Normocephalic, atraumatic. cp cp 09/16 06:09/15 16:22 Eyes: Periorbital structures: appear normal, Conjunctiva: normal, no cp exudate, no injection, Lids and lashes: appear normal, bilaterally, cp 09/16 06:09/15 16:22 ENT: External ear(s): are unremarkable, Nose: is normal, Mouth: is normal, cp Posterior pharynx: is normal, airway is patent, cp 09/16 06:09/15 16:22 Chest/axilla: Inspection: normal, cp cp 09/16 06:09/15 16:22 Cardiovascular: Rate: normal, cp cp 09/16 06:09/15 16:22 Respiratory: the patient does not display signs of respiratory distress, cp Respirations: normal, cp 09/16 06:09/15 16:22 Abdomen/GI: Inspection: abdomen appears normal, Bowel sounds: active, all cp quadrants, Palpation: soft, in all quadrants, mild abdominal tenderness, in the suprapubic area, rebound tenderness, is not appreciated, voluntary guarding, is not appreciated, involuntary guarding, is not appreciated, cp 09/16 06:09/15 16:22 Skin: cellulitis, is not appreciated, no rash present. cp cp
--- NOTE | 2017-09-15 21:21 | ER ---
Nurse's Notes [facility] Name: Jorge Alfaro Age: 62 yrs Sex: Male : 1955 Arrival Date: 09/15/2017 Time: 18:24 Bed 14 Private MD: None, None Diagnosis: Unspecified symptoms and signs involving the genitourinary system-Urinary Urgency Presentation: 09/15 18:25 Presenting complaint: states: pt had difficulty urinating, so a chaudhari catheter was sg surgically placed d/t difficulty inserting chaudhari manually. Now he is unable to urinate at all through the chaudhari that is implace. is his urologist and cant see him until later next week. Transition of care: patient was not received from another setting of care. Onset of symptoms was September 15, 2017. Risk Assessment: Do you want to hurt yourself or someone else? Patient reports no desire to harm self or others. Initial Sepsis Screen: Does the patient meet any 2 criteria? No. Patient's initial sepsis screen is negative. Does the patient have a suspected source of infection? No. Patient's initial sepsis screen is negative. Care prior to arrival: None. 18:25 Method Of Arrival: Ambulatory sg 18:25 Acuity: EARNESTINE 3 sg Historical: - Allergies: 18:31 No Known Allergies; sg - PMHx: 18:31 "clogged artery unknown"; Hypertension; sg - Immunization history:: Adult Immunizations up to date. - Social history:: Smoking status: Patient/guardian denies using tobacco. - Ebola Screening: : Patient negative for fever greater than or equal to 101.5 degrees Fahrenheit, and additional compatible Ebola Virus Disease symptoms Patient denies exposure to infectious person Patient denies travel to an Ebola-affected area in the 21 days before illness onset No symptoms or risks identified at this time. Screenin:30 Abuse screen: Denies threats or abuse. Denies injuries from another. Nutritional bp screening: No deficits noted. Tuberculosis screening: No symptoms or risk factors identified. Fall Risk None identified. Assessment: 19:00 General: Appears distressed, uncomfortable, Behavior is calm, cooperative, appropriate bp for age. Pain: Complains of pain in pelvis. Neuro: Level of Consciousness is awake, alert, obeys commands, Oriented to person, place, time, situation, Appropriate for age. Cardiovascular: No deficits noted. Respiratory: Airway is patent Respiratory effort is even, unlabored, Respiratory pattern is regular, symmetrical. GI: No signs and/or symptoms were reported involving the gastrointestinal system. : Reports inability to void. EENT: No deficits noted. Derm: No deficits noted. Musculoskeletal: Circulation, motion, and sensation intact. Range of motion: intact in all extremities. 20:00 Reassessment: CHAUDHARI IRRIGATION AND BLADDER SCAN COMPLETED, 0ML RESIDUAL NOTED. PROVIDER bp NOTIFIED. 21:01 Reassessment: CHAUDHARI CONTINUING TO DRAIN EFFECTIVELY TO LEG BAG, LAB RESULTS PENDING. bp 21:34 Reassessment: PT D/C HOME AMBULATORY WITH FAMILY, DX WITH URINARY URGENCY. bp Vital Signs: 18:28 Pulse 75; Resp 17; Temp 98.8; Pulse Ox 98% on R/A; Weight 83.91 kg; Height 5 ft. 10 in. sg (177.80 cm); Pain 6/10; 18:31 BP 141 / 86; sg 19:00 BP 129 / 75; Pulse 64; Resp 16; Pulse Ox 98% ; bp 20:01 BP 134 / 82; Pulse 60; Resp 16; Pulse Ox 100% ; bp 21:02 BP 152 / 82; Pulse 63; Resp 16; Pulse Ox 100% ; bp 18:28 Body Mass Index 26.54 (83.91 kg, 177.80 cm) ED Course: 18:24 Patient arrived in ED. sb2 18:25 None, None is Private Physician. sb2 18:28 Triage completed. sg 18:43 Ramses Quintanilla PA is PHCP. cp 18:43 Angel Munoz MD is Attending Physician. cp 19:00 Arm band placed on. bp 19:06 Robles Wong, GUY is Primary Nurse. bp 19:30 Patient has correct armband on for positive identification. Placed in gown. Bed in low bp position. Call light in reach. Side rails up X2. Adult w/ patient. 20:00 Bladder irrigated via Chaudhari with 100 ml normal saline returned clear fluid Patient bp tolerated well. 21:19 Subha Alas MD is Referral Physician. cp Administered Medications: 21:34 Drug: Rocephin - (cefTRIAXone) 1 grams {Note: GIVEN IM PER PROVIDER, R BUTTOCK.} Route: bp IVPB; Infused Over: 30 mins; Site: Other; 21:34 Follow up: IV Status: Completed infusion bp Outcome: 21:21 Discharge ordered by . sarabjit 21:35 Patient left the ED. bp Signatures: Aniket Guerrier RN RN sg Ramses Quintanilla PA PA cp Peltier, Brian, GUY RN bp Juliann Benedict sb2
[2017-09-15] MEDS ORDERED: CEFTRIAXONE 1000 MG/VIAL ONE (21:29)
[2017-09-15] MEDS ORDERED: LIDOCAINE 1% MPF 5 ML VIAL ONE (21:29)
== END 2017-09-15 21:35 | disposition home or self-care (01) ==
LOC: ER 18:21
DX: R39.15 Urgency of urination (principal); I10 Essential (primary) hypertension
CPT/HCPCS: 51700; 81003; 81015; 87086; 87088; 96374; 99284

== ENCOUNTER 2023-01-10 07:42 | Day surgery (SDC) | payer OTHER ==
[2023-01-09 10:13] LABS: Absolute Lymphocytes (CBC) 1.9 K/uL (0.7-4.9); Lymphocytes % 23.7 % (15.3-44.8); MCV 88.7 fL (80-100); MPV 8.3 fL (7.6-11.3); Platelets 148 thou/uL (152-406); RBC Red Blood Cell Count 4.74 M/uL (4.33-5.43)
[2023-01-09 10:35] LABS: Potassium 4.1 mEq/L (3.5-5.1)
[2023-01-09 10:36] LABS: Protime INR 1.07
--- NOTE | 2023-01-09 13:12 | RAD REPORT ---
EXAM DESCRIPTION: RADChest Single View01/09/2023 10:21 am CLINICAL HISTORY: pre op. Hypertension COMPARISON: Chest Pa And Lat (2 Views) dated 12/02/2022; Chest Single View dated 08/09/2017; Chest Pa And Lat (2 Views) dated 08/08/2017; Chest Single View dated 08/06/2017 TECHNIQUE: Portable PA view of the chest. FINDINGS: The lungs are clear. No pneumothorax or effusion. The cardiomediastinal contours are unre markable. IMPRESSION: No acute cardiopulmonary process.
--- NOTE | 2023-01-09 18:05 | EKG ---
Test Date: 2023-01-09 Test Time: 09:12:36 Patrol Commander: DARIEN MEASUREMENT RESULTS: Intervals: Rate: 51 [place]: 166 QRSD: 82 QT: 420 QTc: 387 [place]: P: 86 [place]: 166 QRS: 33 T: 157 INTERPRETIVE STATEMENTS: Sinus bradycardia ST & T wave abnormality, consider inferolateral ischemia Abnormal ECG Compared to ECG 12/02/2022 09:05:46 ST (T wave) deviation now present T-wave abnormality no longer present Possible ischemia still present Electronically Signed On 01-09-23 18:04:40 CDT by Chauncey Bryan
[2023-01-10] MEDS ORDERED: NA CHLORIDE 0.9% 500 ML ONE (08:36)
[2023-01-10] MEDS ORDERED: HEPA 1000U/500MLS 2,000 UNIT/1,000 ML BAG IV ONE (09:06)
[2023-01-10] MEDS ORDERED: LIDOCAINE 1% 20 ML MDV ONE (09:07)
[2023-01-10] MEDS ORDERED: FENTANYL CITR 100 MCG/2 ML ONE (09:12)
[2023-01-10] MEDS ORDERED: MIDAZOLAM HCL 2 MG/2 ML INJ ONE (09:13)
[2023-01-10] MEDS ORDERED: VERAPAMIL HCL 10 MG/4 ML VIAL IV ONE (09:13)
[2023-01-10] MEDS ORDERED: ASPIRIN 325 MG TAB ONE (09:13)
[2023-01-10] MEDS ORDERED: CLOPIDOGREL 75 MG TABLET ONE (09:13)
[2023-01-10] MEDS ORDERED: HEPARIN 5000 UNIT/ML 1 ML VIAL ONE (09:13)
[2023-01-10] MEDS ORDERED: ATROPINE SULF 1 MG/10 ML SYR IV ONE (09:14)
[2023-01-10] MEDS ORDERED: HEPARIN 10,000 UNIT/10 ML VIAL IV ONE (09:14)
[2023-01-10] MEDS ORDERED: TICAGRELOR 90 MG TABLET PO ONE (09:14)
--- NOTE | 2023-01-10 16:58 | OP ---
Date of Procedure: 01/10/2023 Surgeon: DONIS BELTRÁN Procedure Performed: Peripheral angiogram with runoff. Indication: Severe peripheral vascular disease with claudication. Access: Right radial artery 6-Icelandic closed with TR band. Complications: None. Bleeding: Less than 20 mL. Description Of Procedure: After risks, benefits, and alternatives were explained, patient agreed to procedure and signed informal consent. Patient was brought into the cardiac catheterization laborato ry, prepped and draped in usual sterile fashion. Then, I accessed right radial artery using [employer] micropuncture kit, placed 6-Icelandic Slender sheath and took 4-Icelandic long pigtail catheter, placed i n distal aorta and performed peripheral angiogram, aortogram with runoff. Then, I removed the cathet er and the sheath, placed TR band with good hemostasis. Findings: 1.The distal aorta is widely patent. 2.Right lower extremity: Right common iliac appears to be normal. The right external iliac has dif fuse 70% stenosis. Right common femoral appears to be normal. The right profunda is with mild 10% t o 20% stenosis. The right SFA ostial 95% and then mid multiple tandem 50% lesions, distal 90% and ve ry sluggish slow flow below the knee that I could not see, but appears to be diffusely diseased arter ies. 3.Left lower extremity: Left common iliac is widely patent. Left external iliac has diffuse 60% to 70% and the left common femoral appears with diffuse 50%. 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 No reconstitution was seen. Conclusion: Severe bilateral peripheral vascular disease. Plan: We will plan to intervene on the right lower extremities first at [place]. He will need CS I atherectomy versus shockwave and likely stent placement and then at the end of the session, we will plan to fix the left lower extremities. /FERN Voice ID: [id number] Report ID: [id number]
[2023-01-12 14:47] VITALS: BP 140/70; TEMP 98; O2SAT 100
== END 2023-01-10 12:00 | disposition home or self-care (01) ==
LOC: PRE 07:42
PROVIDERS: ATTEND Internal Medicine
DX: I70.223 Atherosclerosis of native arteries of extremities with rest pain, bilateral legs (principal); I70.92 Chronic total occlusion of artery of the extremities; I25.10 Atherosclerotic heart disease of native coronary artery without angina pectoris; I10 Essential (primary) hypertension; E78.2 Mixed hyperlipidemia; Z95.5 Presence of coronary angioplasty implant and graft; F17.210 Nicotine dependence, cigarettes, uncomplicated
CPT/HCPCS: 93005; 85025; 80048; 36415; 83721; 85610; 85730; 71045; 36200; 75630; 76937; C1893; J1644; J2001; J2250; J3010; J7040; J0461

== ENCOUNTER → 2023-05-01 | Emergency (ER) | payer OTHER ==
[~2023-05-01] MED LIST: HYDRALAZINE HCL 20 MG/ML VIAL ONE; LABETALOL 20 MG/4ML SYRINGE IV ONE; MORPHINE 4 MG/ML SYR ONE
--- NOTE | 2023-05-01 12:43 | RAD REPORT ---
EXAM DESCRIPTION: Damon Single View05/01/2023 12:31 pm CLINICAL HISTORY: Chest pain COMPARISON: 2022 FINDINGS: The lungs appear clear of acute infiltrate. The heart is normal size IMPRESSION: No acute abnormalities displayed
[2023-05-01 13:11] LABS: Absolute Lymphocytes (CBC) 1.7 K/uL (0.7-4.9); Hematocrit 36.2 % (39.6-49.0); Lymphocytes % 22.7 % (15.3-44.8); MCV 87.3 fL (80-100); MPV 7.8 fL (7.6-11.3); Platelets 194 thou/uL (152-406); RBC Red Blood Cell Count 4.15 M/uL (4.33-5.43)
[2023-05-01 15:25] LABS: BUN Blood Urea Nitrogen 14 mg/dL (7-18); Bicarbonate 28 mEq/L (21-32); Glomerular Filtration Rate 65 ml/min (=/>90); Glucose Level 113 mg/dL (74-106); Sodium Level 135 mEq/L (136-145); Troponin High Sensitivity 22.5 pg/mL (<58.9)
[2023-05-01 15:26] LABS: Potassium 5.4 mEq/L (3.5-5.1)
[2023-05-01 15:27] LABS: Magnesium 2.1 mg/dL (1.6-2.4)
--- NOTE | 2023-05-01 15:40 | RAD REPORT ---
EXAM DESCRIPTION: CT - Angio Aorta For Dissection - 05/01/2023 2:59 pm CLINICAL HISTORY: . Chest and abd pain . Back pain COMPARISON: 2018 CT abdomen TECHNIQUE: Computed tomography angiography of the chest, abdomen pelvis were obtained. 100 cc Isovue 370 was administered intravenously. Coronal and sagittal reconstruction were performed. MIP 3D reconstruction was performed All CT scans are performed using dose optimization technique as appropriate and may include automated exposure control or mA/KV adjustment according to patient size. FINDINGS: An aortic dissection is not seen. An aortic aneurysm is not displayed. The celiac, and SMA are patent . High-grade stenosis inferior mesenteric artery Moderate grade stenosis left proximal external iliac artery A lung consolidation is not present. A pericardial effusion is not seen. A pleural effusion is not no brigida. Mild dilatation of the common bile and pancreatic ducts. Pancreatic mass not clearly seen. Spleen and adrenals are unremarkable. Bilateral renal cysts. Largest right kidney 6.6 centimeters Moderate prostatic enlargement. Small left inguinal hernia. No evidence diverticulitis. Normal append ix There no evidence diverticulitis. IMPRESSION: Negative for an aortic dissection. Mild dilatation common bile and pancreatic ducts. ERCP recommended
--- NOTE | 2023-05-01 17:05 | RAD REPORT ---
EXAM DESCRIPTION: US - Abdomen Exam Limited - 05/01/2023 4:20 pm CLINICAL HISTORY: Abdominal pain. COMPARISON: None. FINDINGS: The gallbladder wall is not thickened. A gallstone is not seen. Mild gallbladder distention Suboptimal evaluation of the common bile duct secondary to overlying bowel gas IMPRESSION: Mild gallbladder distention
--- NOTE | 2023-05-01 17:45 | EDPHYS ---
Physician Documentation [facility] Name: Jorge Alfaro Age: 67 yrs Sex: Male : 1955 Arrival Date: 05/01/2023 Time: 12:04 Bed 1 Private MD: ED Physician Adeel Cooper HPI: 05/01 12:16 This 67 yrs old Black Male presents to ER via Unassigned with complaints of upper back ms3 pain. 12:16 67-year-old male with past medical history of peripheral artery disease, pretension, ms3 diet Beatties presents to the emergency department for upper back pain that began 2 hours prior to arrival. Patient states the pain is aching and rated 10/10. Patient denies nausea, vomiting, shortness of breath, chest pain. Historical: - Allergies: 12:30 No Known Allergies; tl4 - Home Meds: 12:30 aspirin 81 mg Oral tablet,chewable 1 tab once [Active]; atorvastatin 80 mg oral tablet tl4 1 tab daily [Active]; clopidogrel 75 mg oral tablet 1 tab daily [Active]; lisinopril 20 mg Oral tablet 1 tab daily [Active]; metoprolol succinate 25 mg oral Tablet, Extended Release 24 hr 1 tab daily [Active]; nitroglycerin 0.4 mg SL Tablet, Sublingual [Active]; rivaroxaban 2.5 mg oral tablet 1 tab 2 times per day [Active]; - PMHx: 12:30 Hypertension; Cardiac stent (Hypertension); Femoral stent (Hypertension); Myocardial tl4 infarction; - Immunization history:: Adult Immunizations unknown. - Social history:: Smoking status: Patient/guardian denies using tobacco, Stopped _ months ago 4. ROS: 12:16 Constitutional: Negative for fever, and chills. Neck: Negative for injury, pain, and ms3 swelling, Cardiovascular: Negative for chest pain, and palpitations. Respiratory: Negative for shortness of breath, cough, wheezing, and pleuritic chest pain, Abdomen/GI: Negative for abdominal pain, nausea, vomiting, diarrhea, and constipation, 12:16 Back: Positive for Upper back pain, Exam: 12:16 Constitutional: This is a well developed, well nourished patient who is awake, alert, ms3 and in no acute distress. Head/Face: Normocephalic, atraumatic. Neck: Trachea midline, no cervical lymphadenopathy. Supple, full range of motion without nuchal rigidity, or vertebral point tenderness. No Meningismus. Chest/axilla: Normal chest wall appearance and motion. Nontender with no deformity. Cardiovascular: Regular rate and rhythm with a normal S1 and S2. No gallops, murmurs, or rubs. Normal PMI, no JVD. No pulse deficits. Respiratory: Lungs have equal breath sounds bilaterally, clear to auscultation and percussion. No rales, rhonchi or wheezes noted. No increased work of breathing, no retractions or nasal flaring. Abdomen/GI: Soft, non-tender, with normal bowel sounds. No distension or tympany. No guarding or rebound. No evidence of tenderness throughout. Back: No spinal tenderness. No costovertebral tenderness. Full range of motion. Skin: Warm, dry with normal turgor. Normal color with no rashes, no lesions, and no evidence of cellulitis. MS/ Extremity: Pulses equal, no cyanosis. Neurovascular intact. Full, normal range of motion. 14:49 ECG was reviewed by the Attending Physician. ms3 Vital Signs: 12:26 BP 255 / 114; Pulse 77; Resp 20; Temp 98.3(O); Pulse Ox 100% on R/A; Weight 83.91 kg; tl4 12:38 BP 242 / 108 LA (man/); Pulse 74; Resp 16; Pulse Ox 100% on R/A; Pain 10/10; tl4 13:10 BP 232 / 112 RA (man/); Pulse 61; Resp 18; Pulse Ox 100% on R/A; Pain 8/10; tl4 13:21 BP 230 / 112; Pulse 60; Resp 12; Pulse Ox 100% on R/A; tl4 13:45 BP 222 / 103; Pulse 63; Resp 16; Pulse Ox 100% on R/A; tl4 14:05 BP 216 / 98; Pulse 61; Resp 18; Pulse Ox 100% on R/A; tl4 14:20 BP 183 / 87; Pulse 63; Resp 18; Pulse Ox 100% ; Pain 6/10; tl4 14:43 BP 183 / 87; Pulse 79; Resp 14; Pulse Ox 100% on R/A; tl4 15:24 BP 220 / 100; Pulse 63; Resp 11; Pulse Ox 100% ; tl4 16:27 BP 211 / 89; Pulse 78; Resp 16; Pulse Ox 100% on R/A; tl4 16:45 BP 189 / 60; Pulse 69; Resp 16; Pulse Ox 100% on R/A; tl4 17:15 BP 202 / 110; Pulse 68; Resp 12; Pulse Ox 100% on R/A; Pain 5/10; tl4 17:30 BP 194 / 91; Pulse 69; Resp 17; Pulse Ox 100% on R/A; Pain 6/10; tl4 18:00 BP 176 / 87; Pulse 71; Resp 14; Pulse Ox 100% ; Pain 5/10; tl4 18:18 BP 163 / 87; Pulse 71; Resp 20; Pulse Ox 100% on R/A; tl4 19:26 BP 177 / 93; Pulse 74; Resp 15; Pulse Ox 100% on R/A; Pain 5/10; tl4 12:38 Pain Scale: Adult tl4 13:10 Pain Scale: Adult tl4 14:20 Pain Scale: Adult tl4 17:15 Pain Scale: Adult tl4 17:30 Pain Scale: Adult tl4 18:00 Pain Scale: Adult tl4 19:26 Pain Scale: Adult tl4 Central Coma Score: 12:38 Eye Response: spontaneous(4). Motor Response: obeys commands(6). Verbal Response: tl4 oriented(5). Total: 15. MDM: 12:14 Patient medically screened. ms3 12:16 Differential diagnosis: abnormal EKG, acute myocardial infarction, thoracic aortic ms3 disection. 17:45 ED course: Discussed case with Dr Ch and he accepts patient. ms3 18:42 Data reviewed: vital signs, nurses notes, and as a result, I will transfer for ERCP. ms3 Consideration of Admission/Observation Transfer. Management of patient was discussed with the following: Hospitalist: Dr. Sallie Ch. I considered the following discharge prescriptions or medication management in the emergency department Medications were administered in the Emergency Department. See MAR. Independent interpretation of the following test(s) in the Emergency Department EKG: See my EKG interpretation above case monitor: rate is 66 beats/min, Rhythm is normal sinus rhythm, with no ectopy, Interpretation: normal rate, normal rhythm. Counseling: I had a detailed discussion with the patient and/or guardian regarding the historical points, exam findings, and any diagnostic results supporting the discharge/admit diagnosis, lab results, radiology results, the need to transfer to another facility, [facility] does not immediately have the required specialist. 02 12:15 Order name: Basic Metabolic Panel ms3 05/01 12:15 Order name: CBC with Diff; Complete Time: 14:43 ms3 05/01 12:15 Order name: Magnesium ms3 05/01 12:15 Order name: Troponin HS ms3 05/01 21:42 Order name: Liver (Hepatic) Function EDMS 05/01 21:42 Order name: Lipase EDMS 05/01 12:15 Order name: XRAY Chest (1 view); Complete Time: 14:43 ms3 05/01 12:15 Order name: CT Aorta for Dissection; Complete Time: 15:50 ms3 05/01 15:52 Order name: US Abdomen Limited; Complete Time: 17:25 ms3 05/01 12:15 Order name: EKG; Complete Time: 12:16 ms3 05/01 12:15 Order name: Cardiac monitoring; Complete Time: 12:25 ms3 05/01 12:15 Order name: EKG - Nurse/Tech; Complete Time: 12:26 ms3 05/01 12:15 Order name: IV Saline Lock; Complete Time: 13:06 ms3 05/01 12:15 Order name: Labs collected and sent; Complete Time: 13:06 ms3 05/01 12:15 Order name: O2 Per Protocol; Complete Time: 12:26 ms3 05/01 12:15 Order name: O2 Sat Monitoring; Complete Time: 12:26 ms3 05/01 13:18 Order name: Labs - recollect needed: recollect green top please; Complete Time: 14:46 em1 EC:49 Rate is 76 beats/min. Rhythm is regular. QRS Home is Normal. UT interval is normal. QT ms3 interval is normal. Clinical impression: NSR w/ Non-specific ST/T Changes. Interpreted by me. Reviewed by me. Administered Medications: 14:02 Drug: hydrALAZINE IVP 10 mg IVP once Route: IVP; Site: left antecubital; tl4 14:46 Follow up: Response: Blood pressure is lowered tl4 14:03 Drug: morphine IVP or IV 4 mg IVP once over 4 mins Route: IVP; Infused Over: 4 mins; tl4 Site: left antecubital; 14:46 Follow up: Response: Pain is decreased tl4 16:27 Drug: morphine IVP or IV 4 mg IVP once over 4 mins Route: IVP; Infused Over: 4 mins; tl4 Site: left antecubital; 17:30 Follow up: Response: Pain is decreased tl4 16:27 Drug: hydrALAZINE IVP 10 mg IVP once Route: IVP; Site: left antecubital; tl4 17:30 Follow up: Response: Blood pressure is unchanged tl4 17:38 Drug: Labetalol IV 10 mg IV at calculated rate once Route: IV; Rate: calculated rate; tl4 Site: left antecubital; 18:21 Follow up: Response: Blood pressure is lowered; IV Status: Completed infusion tl4 Disposition: 18:42 Critical Care:. ms3 Disposition Summary: 05/01/23 17:44 Transfer Ordered Notes: Transfer Location: Other Acute Care Facility ms3 Reason: Higher level of care ms3 Condition: Stable ms3 Problem: new ms3 Symptoms: are unchanged ms3 Accepting Physician: Dr Ch(05/02/23 02:31) jj7 Diagnosis - Back pain ms3 - Biliary duct dilatation ms3 - Essential (primary) hypertension ms3 Forms: - Medication Reconciliation Form ms3 - SBAR form ms3 Critical care time excluding procedures: 18:42 Critical care time: Bedside Care: 35 minutes, Consultation: 5 minutes, Family ms3 Intervention: 10 minutes. Total time: 50 minutes Signatures: Dispatcher [employer] EDMS Ricardo Stock em1 Adeel Cooper DO DO ms3 Mary Ulloa RN RN jj7 Darren Alex RN RN tl4 Corrections: (The following items were deleted from the chart) 21:43 15:53 LIPASE+C.LAB.BRZ ordered. EDMS EDMS 21:43 15:53 POTASSIUM+C.LAB.BRZ ordered. EDMS EDMS 21:43 17:05 HEPATIC FUNCTION+C.LAB.BRZ ordered. EDMS EDMS 05/02 02:31 0212 17:44 Dr Ch ms3 jj7
--- NOTE | 2023-05-01 17:45 | ER ---
Nurse's Notes [facility] Name: Jorge Alfaro Age: 67 yrs Sex: Male : 1955 Arrival Date: 05/01/2023 Time: 12:04 Bed 1 Private MD: Diagnosis: Back pain;Biliary duct dilatation;Essential (primary) hypertension Presentation: 05/01 12:26 Chief complaint: Patient states: Pt c/o gradual onset of now resolved chest pain at tl4 1046 today. Pt c/o upper back pain that radiates into both arms. Pt denies nausea, diaphoresis. Pt denies history of similar pain. Coronavirus screen: At this time, the client does not indicate any symptoms associated with coronavirus-19. Ebola Screen: No symptoms or risks identified at this time. Initial Sepsis Screen: Does the patient meet any 2 criteria? No. Patient's initial sepsis screen is negative. Does the patient have a suspected source of infection? No. Patient's initial sepsis screen is negative. Risk Assessment: Do you want to hurt yourself or someone else? Patient reports no desire to harm self or others. Onset of symptoms was May 01, 2023 at 10:46. 12:26 Method Of Arrival: EMS: [facility] tl4 12:26 Acuity: EARNESTINE 2 tl4 Triage Assessment: 12:34 General: Appears distressed, uncomfortable, Behavior is agitated. Pain: Complains of tl4 pain in back, right arm and left arm. EENT: No deficits noted. No signs and/or symptoms were reported regarding the EENT system. Neuro: No deficits noted. Denies weakness dizziness, paresthesias numbness headache. Cardiovascular: Denies chest pain, diaphoresis, fatigue, lightheadedness, nausea, palpitations, shortness of breath, syncope, Rhythm is sinus rhythm Chest pain now resolved. Respiratory: No deficits noted. Denies cough, shortness of breath. GI: No deficits noted. No signs and/or symptoms were reported involving the gastrointestinal system. Patient currently denies abdominal pain, nausea, vomiting. : No deficits noted. No signs and/or symptoms were reported regarding the genitourinary system. Derm: No deficits noted. No signs and/or symptoms reported regarding the dermatologic system. Historical: - Allergies: 12:30 No Known Allergies; tl4 - Home Meds: 12:30 aspirin 81 mg Oral tablet,chewable 1 tab once [Active]; atorvastatin 80 mg oral tablet tl4 1 tab daily [Active]; clopidogrel 75 mg oral tablet 1 tab daily [Active]; lisinopril 20 mg Oral tablet 1 tab daily [Active]; metoprolol succinate 25 mg oral Tablet, Extended Release 24 hr 1 tab daily [Active]; nitroglycerin 0.4 mg SL Tablet, Sublingual [Active]; rivaroxaban 2.5 mg oral tablet 1 tab 2 times per day [Active]; - PMHx: 12:30 Hypertension; Cardiac stent (Hypertension); Femoral stent (Hypertension); Myocardial tl4 infarction; - Immunization history:: Adult Immunizations unknown. - Social history:: Smoking status: Patient/guardian denies using tobacco, Stopped _ months ago 4. Screenin:43 [facility] ED Fall Risk Assessment (Adult) History of falling in the last 3 months, tl4 including since admission No falls in past 3 months (0 pts) Confusion or Disorientation No (0 pts) Intoxicated or Sedated No (0 pts) Impaired Gait No (0 pts) Mobility Assist Device Used No (0 pt) Altered Elimination No (0 pt) Score/Fall Risk Level 0 - 2 = Low Risk Oriented to surroundings, Maintained a safe environment, Educated pt \T\ family on fall prevention, incl call for assistance when getting out of bed, Assessed \T\ reinforced patient's understanding of fall precautions, Provided non-skid footwear, Hourly rounding (assess needs \T\ fall precautionary measures) done, Used ambulatory aids as needed (educated on \T\ assisted with), Used gait belt as appropriate. Abuse screen: Denies threats or abuse. Denies injuries from another. Nutritional screening: No deficits noted. Tuberculosis screening: No symptoms or risk factors identified. Assessment: 12:45 Reassessment: Patient and/or family updated on plan of care and expected duration. Pain tl4 level reassessed. Patient is alert, oriented x 3, equal unlabored respirations, skin warm/dry/pink. Patient states symptoms have not improved. 12:45 Reassessment: MD Cooper aware of pt blood pressure. Awaiting orders. Unable to obtain IV tl4 access. US RN at bedside to attempt access. 18:09 Reassessment: Patient and/or family updated on plan of care and expected duration. Pain tl4 level reassessed. Patient is alert, oriented x 3, equal unlabored respirations, skin warm/dry/pink. Pt updated on plan of care. Pt given warm blanket. Pt denies any needs at this time. 19:27 Reassessment: Report called to GUY Due[facility]as at [facility]. tl4 Vital Signs: 12:26 BP 255 / 114; Pulse 77; Resp 20; Temp 98.3(O); Pulse Ox 100% on R/A; Weight 83.91 kg; tl4 12:38 BP 242 / 108 LA (man/); Pulse 74; Resp 16; Pulse Ox 100% on R/A; Pain 10/10; tl4 13:10 BP 232 / 112 RA (man/); Pulse 61; Resp 18; Pulse Ox 100% on R/A; Pain 8/10; tl4 13:21 BP 230 / 112; Pulse 60; Resp 12; Pulse Ox 100% on R/A; tl4 13:45 BP 222 / 103; Pulse 63; Resp 16; Pulse Ox 100% on R/A; tl4 14:05 BP 216 / 98; Pulse 61; Resp 18; Pulse Ox 100% on R/A; tl4 14:20 BP 183 / 87; Pulse 63; Resp 18; Pulse Ox 100% ; Pain 6/10; tl4 14:43 BP 183 / 87; Pulse 79; Resp 14; Pulse Ox 100% on R/A; tl4 15:24 BP 220 / 100; Pulse 63; Resp 11; Pulse Ox 100% ; tl4 16:27 BP 211 / 89; Pulse 78; Resp 16; Pulse Ox 100% on R/A; tl4 16:45 BP 189 / 60; Pulse 69; Resp 16; Pulse Ox 100% on R/A; tl4 17:15 BP 202 / 110; Pulse 68; Resp 12; Pulse Ox 100% on R/A; Pain 5/10; tl4 17:30 BP 194 / 91; Pulse 69; Resp 17; Pulse Ox 100% on R/A; Pain 6/10; tl4 18:00 BP 176 / 87; Pulse 71; Resp 14; Pulse Ox 100% ; Pain 5/10; tl4 18:18 BP 163 / 87; Pulse 71; Resp 20; Pulse Ox 100% on R/A; tl4 19:26 BP 177 / 93; Pulse 74; Resp 15; Pulse Ox 100% on R/A; Pain 5/10; tl4 12:38 Pain Scale: Adult tl4 13:10 Pain Scale: Adult tl4 14:20 Pain Scale: Adult tl4 17:15 Pain Scale: Adult tl4 17:30 Pain Scale: Adult tl4 18:00 Pain Scale: Adult tl4 19:26 Pain Scale: Adult tl4 Vitals: 12:38 Cardiac Rhythm Assessment Regular Sinus rhythm. tl4 18:18 Cardiac Rhythm Assessment Regular Sinus rhythm. tl4 Patricia Coma Score: 12:38 Eye Response: spontaneous(4). Motor Response: obeys commands(6). Verbal Response: tl4 oriented(5). Total: 15. ED Course: 12:14 Patient arrived in ED. em1 12:14 Adeel Cooper DO is Attending Physician. ms3 12:25 Darren Alex, GUY is Primary Nurse. tl4 12:29 Triage completed. tl4 12:33 XRAY Chest (1 view) In Process Unspecified. EDMS 12:34 Arm band placed on right wrist. tl4 12:44 Patient has correct armband on for positive identification. Placed in gown. Bed in low tl4 position. Call light in reach. Side rails up X2. Adult w/ patient. Provided Education on: ed process. Client placed on continuous cardiac and pulse oximetry monitoring. NIBP monitoring applied. ager tender on. Door closed. Lights dimmed. Moved to private room. Warm blanket given. 12:44 No provider procedures requiring assistance completed. tl4 13:03 Inserted saline lock: 20 gauge in left upper arm, using aseptic technique. ,using nj1 aseptic technique. Ultrasound guided. Catheter tip well visualized within vasculature during placement. Blood collected. 13:06 Basic Metabolic Panel Sent. tl4 13:06 CBC with Diff Sent. tl4 13:06 Magnesium Sent. tl4 13:06 Troponin HS Sent. tl4 15:01 CT Aorta for Dissection In Process Unspecified. EDMS 16:22 US Abdomen Limited In Process Unspecified. EDMS 19:18 Patient transferred, IV remains in place. tl4 Administered Medications: 14:02 Drug: hydrALAZINE IVP 10 mg IVP once Route: IVP; Site: left antecubital; tl4 14:46 Follow up: Response: Blood pressure is lowered tl4 14:03 Drug: morphine IVP or IV 4 mg IVP once over 4 mins Route: IVP; Infused Over: 4 mins; tl4 Site: left antecubital; 14:46 Follow up: Response: Pain is decreased tl4 16:27 Drug: morphine IVP or IV 4 mg IVP once over 4 mins Route: IVP; Infused Over: 4 mins; tl4 Site: left antecubital; 17:30 Follow up: Response: Pain is decreased tl4 16:27 Drug: hydrALAZINE IVP 10 mg IVP once Route: IVP; Site: left antecubital; tl4 17:30 Follow up: Response: Blood pressure is unchanged tl4 17:38 Drug: Labetalol IV 10 mg IV at calculated rate once Route: IV; Rate: calculated rate; tl4 Site: left antecubital; 18:21 Follow up: Response: Blood pressure is lowered; IV Status: Completed infusion tl4 Medication: 19:28 VIS not applicable for this client. tl4 Output: 14:22 Urine: 660ml (Voided); Total: 660ml. tl4 18:20 Urine: 780ml (Voided); Total: 1440ml. tl4 Outcome: 17:44 ER care complete, transfer ordered by . ms3 21:12 Transferred by ground [facility]. to [facility], Transfer jj7 form completed. 21:12 Condition: good 05/02 02:31 Patient left the ED. jj7 Signatures: Dispatcher [employer] EDMS Ricardo Stock em1 Adeel Cooper, DO ms3 Mary Ulloa RN RN jj7 Maddison Schroeder RN RN nj1 Darren Alex RN RN tl4 Corrections: (The following items were deleted from the chart) 05/01 13:11 12:38 BP 242 / 108 Manual; Pulse 74bpm; Resp 16bpm; Pulse Ox 100% RA; Pain 12/27, tl4 Adult; tl4 05/02 02:30 05/01 21:12 Transferred by ground EMS jj7 jj7
[2023-05-01 22:22] LABS: ALT/SGPT 22 U/L (16-61); Albumin 3.4 g/dL (3.4-5.0); Alkaline Phosphatase 49 U/L (45-117); Bilirubin Total 0.5 mg/dL (0.2-1.0); Lipase 44 U/L (13-75); Protein, Total 8.2 g/dL (6.4-8.2)
[2023-05-01 22:37] LABS: AST/SGOT 33 U/L (15-37); Bilirubin Direct < 0.1 mg/dL (0-0.2); Bilirubin Indirect, Calculated ND mg/dL (0.2-0.8)
[2023-05-02 02:53] VITALS: TEMP 98.3; O2SAT 100
[2023-05-02 03:18] VITALS: BP 177/93
== END ==
LOC: ER 12:04
DX: M54.9 Dorsalgia, unspecified (principal); K83.8 Other specified diseases of biliary tract; I10 Essential (primary) hypertension; Z95.818 Presence of other cardiac implants and grafts; Z79.82 Long term (current) use of aspirin
CPT/HCPCS: 93005; 85025; 80048; 36415; 83735; 82565; 80076; 84484; 83690; 71275; 74175; 71045; 76705; Q9967; J0360 ×2